=== PATIENT | female | born 1930 | race Caucasian/White ===

== ENCOUNTER 2018-05-13 11:46 | Inpatient (IN) ==
[2018-05-13] MEDS ORDERED: Levofloxacin 500 MG/100 ML 500 MG/100 ML BAG IVPB ONE (12:18)
[2018-05-13] MEDS ORDERED: MetroNIDAZOLE 500 MG/100 ML 500 MG/100 ML BAG IVPB ONE (12:19)
[2018-05-13] MEDS ORDERED: *HR* Propofol 200 MG/20 ML VIAL IVP ONE (12:29)
[2018-05-13] MEDS ORDERED: *HR* FentaNYL (PF) 100 MCG/2 ML VIAL ONE (12:29)
[2018-05-13] MEDS ORDERED: Ringers Solution, Lactated 1,000 ML IVC SCH (12:30)
[2018-05-13] MEDS ORDERED: *HR* Rocuronium Bromide 50 MG/5 ML VIAL ONE (12:31)
[2018-05-13] MEDS ORDERED: Lidocaine -MPF 2% 2 ML VIAL ONE ×2 (12:31→14:28)
--- NOTE | 2018-05-13 12:44 | Anesthesia Evaluation PreOp ---
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) Other Medical History: Thyroid, Other (METASTATIC BREAST CANCER, MANAGED BY A KETOGENIC DIET AN EXPERIMENTAL STUDY AT [facility], LIMITED TO 20 GM OF CARBOHYDRATES PER DAY) Anesthesia History: No Prior Anesthetic Complications, Past Anesthesia (HERI, TONSILS, GB, SPARKLE) Alcohol Use: none Drug use: none Medications and Allergies 3 Allergy/AdvReac Type Severity Reaction Status Date / Time Erythromycin Base Allergy Hives Verified 05/11/18 14:28 Iodinated Contrast- Oral and Allergy Swelling Verified 05/11/18 14:28 IV Dye of [Iodinated Contrast Media - Lip/Tongue/Throat IV Dye] Penicillins Allergy Hives Verified 05/11/18 14:28 gluten AdvReac Rash Verified 05/11/18 14:28 - Meds/Allergy Pre-op Review Medications Reviewed: Yes Allergies Reviewed: Yes Beta Blockers on Current Med List: No Anesthesia Results - Labs Laboratory Last Values WBC 6.3 K/mcL (4.3-11.1) 05/08/18 13:10 RBC 4.17 M/mcL (3.82-4.97) 05/08/18 13:10 Hgb 12.2 g/dL (11.5-15.4) 05/08/18 13:10 Hct 38.9 % (35.3-44.9) 05/08/18 13:10 MCV 93.3 fL (83.0-100.0) 05/08/18 13:10 MCH 29.3 pg (28.0-33.3) 05/08/18 13:10 MCHC 31.4 g/dL (31.6-35.5) L 05/08/18 13:10 RDW 15.2 % (11.5-14.5) H 05/08/18 13:10 Plt Count 318 K/mcL (140-400) 05/08/18 13:10 MPV 9.5 fL (9.4-12.4) 05/08/18 13:10 Immature Gran % 0.3 % (0-4) 05/08/18 13:10 Seg Neutrophils % 75.2 % 05/08/18 13:10 Lymphocytes % 13.8 % 05/08/18 13:10 Monocytes % 8.5 % 05/08/18 13:10 Eosinophils % 1.6 % 05/08/18 13:10 Basophils % 0.6 % 05/08/18 13:10 Neutrophils # 4.7 K/mcL (1.6-8.9) 05/08/18 13:10 Lymphocytes # 0.9 K/mcL (0.6-4.6) 05/08/18 13:10 Monocytes # 0.5 K/mcL (0.0-1.3) 05/08/18 13:10 Eosinophils # 0.1 K/mcL (0.0-0.6) 05/08/18 13:10 Basophils # 0.0 K/mcL (0.0-0.2) 05/08/18 13:10 Potassium 4.1 mEq/L (3.5-5.1) 05/08/18 13:10 Creatinine 0.67 mg/dL (0.60-1.20) 05/08/18 13:10 Est GFR ( Amer) > 60 (> 60) 05/08/18 13:10 Est GFR (Non-Af Amer) > 60 (> 60) 05/08/18 13:10 - Imaging EKG: report reviewed (SINUS RHYTHM WITH SHORT WV INTERVAL) Anesthesia Exam O2 Sat Height 1.52 m Weight 49.895 kg BMI 22 Vital Signs Temp Pulse Resp BP Pulse Ox 98.4 F 88 18 142/65 96 05/13/18 12:06 05/13/18 12:06 05/13/18 12:06 05/13/18 12:06 05/13/18 12:06 NPO (# of Hours): 8 - HEENT Mallampati: II (LIMITED NECK EXTENSION) Teeth: Missing Denture Type: Upper: Partial Oral Opening: Greater than 3 - Cardiac Rhythm: Regular - Pulmonary Breath Sounds: bilateral Clear Respiratory Effort: Symmetrical Anesthesia Assess/Plan ASA Score: 3 Modified Liberty Scale for Level of Consciousness: Cooperative, oriented, and tranquil Anesthetic Plan: General, Regional (TAP BLOCK FOR POST OPERATIVE PAIN) Monitoring Plan: Standard Monitors Recovery Plan: PACU Anes Supervising Prov Stmt: ROR Media LIST NOT UPDATED THIS VISIT PATIENT'S CHART AND CURRENT MEDICATIONS REVIEWED CURRENT MEDICATIONS: Taking Losartan Potassium 25 MG Tablet, Sig: TAKE ONE TABLET BY MOUTH DAILY Taking [place] Thyroid 30 MG Tablet, Sig: TAKE ONE TABLET BY MOUTH DAILY Taking Clonidine HCl 0.1 MG Tablet, Si tablet Orally BID Patient informed and consented. Risks, benefits, and alternatives discussed. Patient wishes to proceed.
--- NOTE | 2018-05-13 12:55 | History & Physical Report ---
Date of Encounter: 05/13/18 Time of Encounter: 12:55 24 Hour HP Update - Instructions Instructions: If the History and Physical is less than 30 days old and was completed prior to A.M. admission and or procedure and has NOT been updated on calendar day of procedure please complete this update prior to performing procedure. - Update Patient reports changes in Medical Condition: No Changes in examination, assessment, or condition: No Changes in Medication: No Preop tests/diagnostics Reviewed: Yes Pre-Op MRSA Screen: Negative Surgery Remains Indicated: Yes Consent for Planned Operative Procedure(s) Verified: Yes - Pre-Operative Checklist Preoperative Checklist Indicated: No Prophylactic Antibiotic Ordered: Yes Home Medications Include Beta Vanda: No Beta Vanda Taken Today (Day of Surgery): No Beta Vanda Taken Yesterday (Day Prior to Surgery): No Is VTE Prophylaxis Indicated?: NO
[2018-05-13] MEDS ORDERED: CefOXitin 1,000 MG VIAL ONE (12:57)
[2018-05-13] MEDS ORDERED: Bupivacaine/EPI 1:200k 0.5%PF 30 ML VIAL ONE (12:57)
[2018-05-13] MEDS ORDERED: Ketamine *HR* 500 MG/10 ML MDV ONE (13:16)
[2018-05-13] MEDS ORDERED: Dexmedetomidine HCl 400 MCG/100 ML MLS IVC ONE (13:17)
[2018-05-13] MEDS ORDERED: Acetaminophen IV 1,000 MG/100 ML INFUS..BTL ONE (13:28)
[2018-05-13] MEDS ORDERED: ROPIVACAINE HCL/PF 0.5% 30 ML VIAL ONE (13:30)
[2018-05-13] MEDS ORDERED: Ondansetron 4 MG/2 ML VIAL ONE (13:57)
[2018-05-13] MEDS ORDERED: *HR* Magnesium Sulfate 1 GM/2 ML VIAL ONE (13:58)
[2018-05-13] MEDS ORDERED: *HR* PHENYLEPHRINE 1,000 MCG/10 ML SYRINGE IVP ONE (14:03)
[2018-05-13] MEDS ORDERED: Ondansetron 4 MG/2 ML VIAL IVP PRN (14:26)
[2018-05-13] MEDS ORDERED: *HR* Labetalol 20 MG/4 ML SYRINGE IVP PRN (14:26)
[2018-05-13] MEDS ORDERED: Ketorolac 30 MG/ML VIAL ONE (15:22)
[2018-05-13] MEDS ORDERED: Neostigmine Methylsulfate 3 MG/3 ML SYRINGE ONE (15:55)
--- NOTE | 2018-05-13 16:14 | Operative Note ---
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 Exploratory celiotomy. 2. Right colectomy. Anesthesia: GETA Surgeon: Zach Connelly Was there an per diem physical therapist assistant present: Yes Urgent Care Technician: Tea Corral Estimated blood loss (cc): 45 Specimen: omentum, right colon Condition: stable Disposition: PACU Procedure in Detail: Date of surgery: 05/13/18 After properly identifying the patient, the patient was brought to the operating room and placed in the supine position. After proper IV sedation was achieved followed by general endotracheal intubation, the patient's abdomen was prepped and draped in a normal sterile fashion. A timeout was performed noting the patient's name and type of procedure to be performed. A 10 blade scalpel was used to make an incision just below the xiphoid process along the midline extending just below the level of the umbilicus. Bovie cauterization was used to dissected the subcutaneous tissue and abdominal wall fascia into the abdomen was entered. The abdominal wall fascia was opened along the course of the skin incision. Bovie cauterization was used to maintain hemostasis and an Justo wound protector was placed within the wound to protect the subcutaneous tissue. The transverse colon was readily visualized. The mesentery appeared to be sure shortened and very fibrotic in nature. There is no laxity in the mesentery and palpation in the right upper quadrant demonstrated a firm adherent mass in the colon that was adherent to the abdominal sidewall. In order to allow for dissection first the transverse colon was transected with a NATY stapler. Bovie cauterization was used to carefully dissect through the initially thin mesentery until the hard fibrotic portion of the mesentery in the hepatic flexure region was encountered, which was located centrally throughout the entire mesentery. There was a lot of denseness within the mesentery causing difficulty with the dissection and difficulty in visualizing a plane. Right angle forceps as well as tonsil dissectors were used to create windows and openings while a handheld LigaSure was used to transect across the mesentery. There were some adhesions from the colon to the liver due to the patient's previous cholecystectomy and these were taken down with Bovie cauterization and the handheld LigaSure. Once the hepatic flexure and ascending colon were encountered there was noted thickness of the colon and a mass effect that appeared to also be be part of the mesentery in this region. The colon was directly adherent to the sidewall which was taken down with Bovie cauterization. The mesentery itself had to be taken down with the above- mentioned technique using the tonsil dissector and LigaSure as well as Bovie cauterization. The duodenum was noted to be away from the dissection plane but again the mesentery was very fibrotic in nature and foreshortened. Bovie cauterization was used to maintain hemostasis and dissection was carried down further inferiorly towards the ileocecal valve and distal ileum. Once the distal ileum was visualized it was transected with a NATY stapler and the intervening/remaining mesentery was transected with the handheld LigaSure. The segment of the bowel was then submitted to pathology. Of note; the entire mesentery in this region appear to have some type of fibrotic reaction very similar to what is seen in a carcinoid cancer of the colon or small bowel and the resulting thickening and fibrosis that can occur in the mesentery of that particular tumor. The small bowel was anastomosed to the transverse colon segment by first tacking the bowel from serosa to serosa with interrupted 3-0 silk sutures. The anastomosis was created with the NATY stapler and the enterotomy was then closed with a TA stapler and imbricated with interrupted 3- 0 silk sutures. The right upper quadrant was copiously irrigated with normal saline solution and the decision was made to complete the surgical procedure by placing Seprafilm within the abdomen and reapproximating the fascia with running 0 looped PDS sutures 2. Subcutaneous tissue was reapproximated with 2- 0 Vicryl sutures and the epidermal and dermal layers were reapproximated with cecil. Needle, sponge, and instrument counts were correct 2 and the incision was covered with 4 x 4 gauze. The patient was aroused from IV sedation , extubated in the operating room without complication, and transported to the recovery room in stable condition.
[2018-05-13] MEDS: *HR* HYDROmorphone 2 MG/ML SYRINGE IVP PRN ×2 (16:53→17:15)
--- NOTE | 2018-05-13 17:51 | Anesthesia Procedures ---
Date of Encounter: 05/13/18 Time of Encounter: 16:20 Procedures: Anesthesia - Nerve Block Procedure Date: 05/13/18 Time: 16:20 Allergies/Adv Reactions: see emr Pre-op Diagnosis: colon ca Surgical Procedure: open right colectomy Checklist: Correct Patient Identifier, Correct procedure, History checked Blood Thinner: No Monitor Applied: EKG, BP, Pulse Oximetry Supplemental Oxygen via Nasal Cannula (L/min): 2 (GETA) Indication: Post Op Analgesia Pre-op Neuro Deficits: No Block Type: Other (bilateral tap block 30ml per side) Catheter placed: No Sterile Technique: Yes Ultrasound used: Yes Anatomy identified: Yes Visual spread of Local: Yes Neuro Stimulation: No Blood on Needle Aspiration: No Smooth Injection of Local: Yes Pain with Injection of Local: No Prep: Chlorhexadine Needle: 21 x 100 mm Stimuplex (echogenic) Local: Ropivacaine (0.25%), Other (decadron 8mg per side, 40mg lidocaine per side) Volume (cc): 60 Number of Attempts: 1 Complications: None/effective block Vitals: see anesthetic record
--- NOTE | 2018-05-13 17:53 | Anesthesia Evaluation Post Op ---
Date of Encounter: 05/13/18 Time of Encounter: 17:42 - Discharge PostOp Status: Transfer Patient to floor (Patient's vital signs have been reviewed. Patient is stable postoperatively and has adequately recovered from anesthesia. Patient is determined to have stable airway patency and respiratory function including respiratory rate and oxygen saturation. Patient has a stable heart rate, blood pressure and adequate hydration. Patients mental status is acceptable. Patients temperature is appropriate. Pain and nausea are adequately controlled.)
[2018-05-13] MEDS ORDERED: Naloxone 0.4 MG/ML INJ IVP PRN (17:58)
[2018-05-13] MEDS ORDERED: Acetaminophen IV 1,000 MG/100 ML INFUS..BTL IVPB SCH (18:00)
[2018-05-13 18:39] LABS: Basophils % 0.1 %; Eosinophils % 0.1 %; Hematocrit 34.4 % (35.3-44.9); Hemoglobin 10.7 g/dL (11.5-15.4); Immature Granulocytes % 0.2 % (0-4); Lymphocytes # 0.6 K/mcL (0.6-4.6); Lymphocytes % 7.1 %; Mean Corpuscular HGB Conc 31.1 g/dL (31.6-35.5); Mean Corpuscular Hemoglobin 29.2 pg (28.0-33.3); Mean Platelet Volume 8.9 fL (9.4-12.4); Monocytes # 0.7 K/mcL (0.0-1.3); Monocytes % 7.8 %; Neutrophils # 7.3 K/mcL (1.6-8.9); Platelet Count 249 K/mcL (140-400); Red Blood Count 3.66 M/mcL (3.82-4.97); Red Cell Distribution Width 14.9 % (11.5-14.5); Segmented Neutrophils % 84.7 %
[2018-05-13] MEDS: 0.9 % Sodium Chloride 1,000 ML IVC SCH (18:42)
[2018-05-13] MEDS: MORPHINE SUL Oral CONC 10 MG/0.5 ML ORAL.SYG SL PRN ×2 (18:43→22:07)
[2018-05-13] MEDS: cloNIDine HCl 0.1 MG TABLET PO SCH (20:04)
[2018-05-13] MEDS: Acetaminophen IV 1,000 MG/100 ML INFUS..BTL IVPB SCH (20:07)
[2018-05-13] MEDS: MetroNIDAZOLE 500 MG/100 ML 500 MG/100 ML BAG IVPB SCH (22:08)
[2018-05-14] MEDS: Acetaminophen IV 1,000 MG/100 ML INFUS..BTL IVPB SCH ×4 (02:06→21:43)
[2018-05-14] MEDS: MetroNIDAZOLE 500 MG/100 ML 500 MG/100 ML BAG IVPB SCH ×2 (06:04→13:19)
[2018-05-14 06:48] LABS: BUN/Creatinine Ratio 19 (6-26); Blood Urea Nitrogen 16 mg/dL (8-23); Calcium 8.1 mg/dL (8.6-10.3); Carbon Dioxide 15 mEq/L (23-29); Chloride 106 mEq/L (98-107); Glucose 115 mg/dL (70-105); Magnesium 2.1 mg/dL (1.6-2.6); Osmolality,Calculated 284 (280-300); Potassium 4.3 mEq/L (3.5-5.1); Sodium 136 mEq/L (136-145); eGFR For Non-African Americans > 60 (> 60)
[2018-05-14] MEDS: MORPHINE SUL Oral CONC 10 MG/0.5 ML ORAL.SYG SL PRN ×2 (08:02→23:33)
[2018-05-14] MEDS: cloNIDine HCl 0.1 MG TABLET PO SCH ×2 (08:02→20:09)
[2018-05-14] MEDS: Pantoprazole 40 MG VIAL IVP SCH (08:03)
--- NOTE | 2018-05-14 10:06 | General Surgery Progress Note ---
<Alea Meyer - Last Filed: 05/14/18 10:37> Date of Encounter: 05/14/18 Time of Encounter: 10:06 - Assessment and Plan (1) Breast cancer metastasized to large intestine Current Visit: Yes Status: Acute POD 1 right partial colectomy with very fribrotic tissue resected - continue supportive care and pain control -advance diet to clears - biotine mouth wash for comfort - PT/OT to evaluate for weakness - up to chair - anticipate we may begin wound care tomorrow on POD 2 Qualifiers: Laterality: unspecified laterality Qualified Code(s): C50.919 - Malignant neoplasm of unspecified site of unspecified female breast; 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 (2) Hypertension Current Visit: No Status: Acute Qualifiers: Hypertension type: essential hypertension Qualified Code(s): I10 - Essential (primary) hypertension (3) Malignancy Current Visit: No Status: Suspected (4) DVT prophylaxis Current Visit: Yes Status: Acute heparin sq and calf pumps Subjective Patient reports: still having pain (pain worse at incision ), tolerating liquids well, bowel movement, afebrile (patient says that 98.3 is an elevated tempature for her), other (complains of generilized weakness and fatigue) Objective Vital Signs - Last 8 Hours Temp Pulse Resp BP Pulse Ox 05/14/18 08:10 94 05/14/18 07:05 97.9 F 89 17 115/67 94 05/14/18 04:59 98.6 F 91 12 114/64 95 Intake and Output 05/13/18 05/14/18 05/14/18 23:59 07:59 15:59 Intake Total 200 / 200 100 / 100 100 / 100 Output Total 145 / 145 200 / 200 Balance 55 / 55 -100 / -100 100 / 100 Intake: IV Fluids 200 / 200 100 / 100 100 / 100 Ofirmev 1,000 mg/100 ml 1,000 100 / 100 100 / 100 mg In 100 ml @ 400 mls/hr IVPB Q6H [facility] Rx#:[id number] Flagyl Premix 500 MG/100 ML 500 100 / 100 100 / 100 mg In 100 ml @ 100 mls/hr IVPB Q8H [facility] Rx#:[id number] Oral 0 / 0 Output: Estimated Blood Loss 45 / 45 Urine Amount (Catheter) 100 / 100 Catheter 200 / 200 Other: Stool Size Small Stool Consistency loose Stool Color Brown Green Weight 52.5 kg Blood Glucose* 108 Patient Weight 05/14/18 23:59 Weight 52.5 kg - General physical appearance well developed, well nourished, no distress - Eyes normal ocular movement - ENT normal pinna, normal nares, normal mucosa, no congestion - Respiratory normal expansion, normal respiratory effort, clear to auscultation - Cardiovascular Cardiovascular exam: Present: RRR, no murmurs/rubs/gallops - Abdomen Abdomen: Present: bowel sounds present, soft Abdominal Tenderness: epigastic - Incision Incision: Present: approximated (covered by dressing ). Absent: draining - Integumentary no rash, no growths, no abnormal pigmentation - Neurologic CN 2-12 grossly intact, normal coordination, normal sensation - Musculoskeletal normal gait, normal posture - Psychiatric oriented to time, oriented to person, oriented to place, speech is normal, memory intact - Labs 05/13/18 18:19 05/14/18 05:46 Diabetes panel 05/14/18 Range/Units 05:46 Sodium 136 (136-145) mEq/L Potassium 4.3 (3.5-5.1) mEq/L Chloride 106 (98-107) mEq/L Carbon Dioxide 15 L (23-29) mEq/L BUN 16 (8-23) mg/dL Creatinine 0.85 (0.60-1.20) mg/dL Glucose 115 H (70-105) mg/dL Calcium 8.1 L (8.6-10.3) mg/dL Calcium panel 05/14/18 Range/Units 05:46 Calcium 8.1 L (8.6-10.3) mg/dL Pituitary panel 05/14/18 Range/Units 05:46 Sodium 136 (136-145) mEq/L Potassium 4.3 (3.5-5.1) mEq/L Chloride 106 (98-107) mEq/L Carbon Dioxide 15 L (23-29) mEq/L BUN 16 (8-23) mg/dL Creatinine 0.85 (0.60-1.20) mg/dL Glucose 115 H (70-105) mg/dL Calcium 8.1 L (8.6-10.3) mg/dL Adrenal panel 05/14/18 Range/Units 05:46 Sodium 136 (136-145) mEq/L Potassium 4.3 (3.5-5.1) mEq/L Chloride 106 (98-107) mEq/L Carbon Dioxide 15 L (23-29) mEq/L BUN 16 (8-23) mg/dL Creatinine 0.85 (0.60-1.20) mg/dL Glucose 115 H (70-105) mg/dL Calcium 8.1 L (8.6-10.3) mg/dL Consult Discharge Plan - Plan Referrals: Zach Connelly MD [Partnered Physician] - 05/26/18 1:25 pm Maryan Chapin CNP [Primary Care Provider] - <Zach Connelly - Last Filed: 05/15/18 08:55> Date of Encounter: 05/14/18 Objective Vital Signs - Last 8 Hours Temp Pulse Resp BP Pulse Ox 05/15/18 07:59 97.8 F 99 14 113/60 96 05/15/18 04:58 98.1 F 98 15 121/67 96 Intake and Output 05/14/18 05/15/18 05/15/18 23:59 07:59 15:59 Intake Total 340 / 340 1100 / 1100 Output Total 100 / 100 350 / 350 Balance 240 / 240 750 / 750 Intake: IV Fluids 100 / 100 1100 / 1100 0.9 % Sodium Chloride 1,000 ML 1000 / 1000 @ 70 mls/hr IVC .[id number] [facility] Rx #:[id number] Ofirmev 1,000 mg/100 ml 1,000 100 / 100 100 / 100 mg In 100 ml @ 400 mls/hr IVPB Q6H [facility] Rx#:[id number] Oral 240 / 240 0 / 0 Output: Catheter 100 / 100 350 / 350 Other: Meal CLEARS Stool Size Small Stool Consistency liquid Stool Color Green # Bowel Movements 0 0 - Labs 05/13/18 18:19 05/14/18 05:46 - Attending Attestation I examined this patient and my medical decision-making was reviewed with the Resident Physician. I agree with the documented findings, disposition and treatment plan as described except to the extent set forth below. I reviewed the above assessment and evaluation and agree with the above plan. Continue OOB to chair. Clear liquids. Start dressing change tomorrow.
[2018-05-14] MEDS ORDERED: Saliva Stimulant 100ml BOTTLE PO PRN (10:17)
[2018-05-14] MEDS: 0.9 % Sodium Chloride 1,000 ML IVC SCH (13:19)
[2018-05-14] MEDS ORDERED: Levofloxacin 500 MG/100 ML 500 MG/100 ML BAG IVPB SCH (14:00)
[2018-05-14] MEDS: *HR* Heparin 5,000 UNIT/ML VIAL SQ SCH (17:54)
[2018-05-15] MEDS: Acetaminophen IV 1,000 MG/100 ML INFUS..BTL IVPB SCH ×2 (01:16→08:37)
[2018-05-15] MEDS: *HR* Heparin 5,000 UNIT/ML VIAL SQ SCH ×2 (05:04→16:53)
[2018-05-15] MEDS: MORPHINE SUL Oral CONC 10 MG/0.5 ML ORAL.SYG SL PRN ×2 (05:05→15:02)
[2018-05-15] MEDS: 0.9 % Sodium Chloride 1,000 ML IVC SCH (05:45)
[2018-05-15] MEDS: Pantoprazole 40 MG VIAL IVP SCH (08:32)
[2018-05-15] MEDS: cloNIDine HCl 0.1 MG TABLET PO SCH ×2 (08:32→22:14)
--- NOTE | 2018-05-15 12:03 | General Surgery Progress Note ---
Date of Encounter: 05/15/18 Time of Encounter: 12:01 - Assessment and Plan (1) Breast cancer metastasized to large intestine Current Visit: Yes Status: Acute Patient is s/p right colectomy POD 2. Tolerating clears. Will DC shel[place]. Advance diet to full liquids. Heplock IVF. Start oral pain medications. OOB and ambulation. Start dressing changes today. 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 No pain currently. No nausea or vomiting. Positive BM and flatus.) Objective Vital Signs - Last 8 Hours Temp Pulse Resp BP Pulse Ox 05/15/18 09:59 98.3 F 95 12 105/62 94 05/15/18 08:30 94 05/15/18 07:59 97.8 F 99 14 113/60 96 05/15/18 04:58 98.1 F 98 15 121/67 96 Intake and Output 05/14/18 05/15/18 05/15/18 23:59 07:59 15:59 Intake Total 340 / 340 1100 / 1100 460 / 460 Output Total 100 / 100 350 / 350 Balance 240 / 240 750 / 750 460 / 460 Intake: IV Fluids 100 / 100 1100 / 1100 100 / 100 0.9 % Sodium Chloride 1,000 ML 1000 / 1000 @ 70 mls/hr IVC .[id number] [facility] Rx #:[id number] Ofirmev 1,000 mg/100 ml 1,000 100 / 100 100 / 100 100 / 100 mg In 100 ml @ 400 mls/hr IVPB Q6H [facility] Rx#:[id number] Oral 240 / 240 0 / 0 360 / 360 Output: Catheter 100 / 100 350 / 350 Other: Meal CLEARS Breakfast Clear Stool Size Small Stool Consistency liquid Stool Color Green # Bowel Movements 0 0 - General physical appearance no distress - Abdomen Abdomen: Present: soft, non tender - Incision Incision: Present: clean and dry, intact - Neurologic CN 2-12 grossly intact - Labs 05/13/18 18:19 05/14/18 05:46 Consult Discharge Plan - Plan Referrals: Zach Connelly MD [Partnered Physician] - 05/26/18 1:25 pm Maryan Chapin CNP [Primary Care Provider] -
[2018-05-15] MEDS: Ondansetron 4 MG/2 ML VIAL IVP PRN (22:13)
[2018-05-16] MEDS: MORPHINE SUL Oral CONC 10 MG/0.5 ML ORAL.SYG SL PRN (05:19)
[2018-05-16] MEDS: *HR* Heparin 5,000 UNIT/ML VIAL SQ SCH ×2 (05:20→16:00)
[2018-05-16] MEDS: Ondansetron 4 MG/2 ML VIAL IVP PRN (05:20)
[2018-05-16] MEDS: Pantoprazole 40 MG VIAL IVP SCH (08:38)
[2018-05-16] MEDS: cloNIDine HCl 0.1 MG TABLET PO SCH (08:38)
--- NOTE | 2018-05-16 10:04 | General Surgery Progress Note ---
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 Objective Vital Signs - Last 8 Hours Temp Pulse Resp BP Pulse Ox 05/16/18 14:42 97.9 F 95 13 119/64 96 05/16/18 10:00 98.2 F 112 13 153/79 95 05/16/18 06:58 97.3 F L 109 15 156/74 97 Intake and Output 05/15/18 05/16/18 05/16/18 23:59 07:59 15:59 Intake Total 360 / 360 0 / 0 0 / 0 Output Total 375 / 375 Balance 360 / 360 -375 / -375 0 / 0 Intake: IV Fluids 0 / 0 0.9 % Sodium Chloride 1,000 ML 0 / 0 @ 80 mls/hr IVC .[id number] [facility] Rx #:[id number] Oral 360 / 360 0 / 0 Output: Urine 375 / 375 Other: Meal clears Stool Size Smear Stool Consistency loose Stool Color Brown # Voids 1 # Bowel Movements 1 - Labs 05/16/18 10:40 05/16/18 10:40 Diabetes panel 05/16/18 Range/Units 10:40 Sodium 134 L (136-145) mEq/L Potassium 4.5 (3.5-5.1) mEq/L Chloride 105 (98-107) mEq/L Carbon Dioxide 16 L (23-29) mEq/L BUN 15 (8-23) mg/dL Creatinine 0.67 (0.60-1.20) mg/dL Glucose 103 (70-105) mg/dL Calcium 8.5 L (8.6-10.3) mg/dL Calcium panel 05/16/18 Range/Units 10:40 Calcium 8.5 L (8.6-10.3) mg/dL Phosphorus 2.1 L (2.7-4.5) mg/dL Pituitary panel 05/16/18 Range/Units 10:40 Sodium 134 L (136-145) mEq/L Potassium 4.5 (3.5-5.1) mEq/L Chloride 105 (98-107) mEq/L Carbon Dioxide 16 L (23-29) mEq/L BUN 15 (8-23) mg/dL Creatinine 0.67 (0.60-1.20) mg/dL Glucose 103 (70-105) mg/dL Calcium 8.5 L (8.6-10.3) mg/dL Adrenal panel 05/16/18 Range/Units 10:40 Sodium 134 L (136-145) mEq/L Potassium 4.5 (3.5-5.1) mEq/L Chloride 105 (98-107) mEq/L Carbon Dioxide 16 L (23-29) mEq/L BUN 15 (8-23) mg/dL Creatinine 0.67 (0.60-1.20) mg/dL Glucose 103 (70-105) mg/dL Calcium 8.5 L (8.6-10.3) mg/dL Consult Discharge Plan - Plan Referrals: Zach Connelly MD [Partnered Physician] - 05/26/18 1:25 pm Maryan Chapin CNP [Primary Care Provider] - - Attending Attestation I examined this patient and my medical decision-making was reviewed with the Resident Physician. I agree with the documented findings, disposition and treatment plan as described except to the extent set forth below. Patient reported nausea. Patient did not eat dinner nor a breakfast and has had some vomiting. She admits to passing flatus. Given the poor by mouth intake yesterday evening and also today we will back off to IV fluids and to clear liquids. Incision is clean dry and intact with no signs of erythema patient has positive bowel sounds. Phenergan has been added for antinausea medication and we will obtain an abdominal plain film. Will follow along <Alea Meyer - Last Filed: 05/16/18 17:20> Date of Encounter: 05/16/18 Time of Encounter: 10:02 - Assessment and Plan (1) Breast cancer metastasized to large intestine Current Visit: Yes Status: Acute POD 1 right partial colectomy with very fribrotic tissue resected; she is continuing to complain of pain and vomiting - continue supportive care and pain control -not tolerating softs, change to clears that are gluten free - IVF NS 80 - start phenegran in addition to zofran - BMP and CMP - begin wound care - X-ray abdominal shows ileus Dr Connelly will re-evaluate later today Qualifiers: Laterality: unspecified laterality Qualified Code(s): C50.919 - Malignant neoplasm of unspecified site of unspecified female breast; 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 Patient ate very little of food yesterday ) Objective Vital Signs - Last 8 Hours Temp Pulse Resp BP Pulse Ox 05/16/18 06:58 97.3 F L 109 15 156/74 97 05/16/18 03:01 97.9 F 105 14 147/77 95 Intake and Output 05/15/18 05/16/18 05/16/18 23:59 07:59 15:59 Intake Total 360 / 360 0 / 0 Output Total 375 / 375 Balance 360 / 360 -375 / -375 Intake: Oral 360 / 360 0 / 0 Output: Urine 375 / 375 Other: Meal clears Stool Size Smear Stool Consistency loose Stool Color Brown # Voids 1 # Bowel Movements 1 - General physical appearance well developed, well nourished, moderate distress - Eyes normal ocular movement - ENT normal pinna, normal nares, normal mucosa, no hearing loss - Respiratory normal expansion, normal respiratory effort, clear to auscultation - Cardiovascular Cardiovascular exam: Present: RRR, no murmurs/rubs/gallops - Abdomen Abdomen: Present: bowel sounds present, soft Abdominal Tenderness: RLQ (worse), diffusely Hernia: none - Incision Incision: Present: approximated. Absent: draining, inflamed, erythema, indurated - Neurologic CN 2-12 grossly intact, normal coordination, normal sensation - Musculoskeletal normal gait, normal posture - Psychiatric oriented to time, oriented to person, oriented to place, speech is normal, memory intact, other (anxious) - Labs 05/16/18 10:40 05/16/18 10:40
[2018-05-16 10:52] LABS: Basophils % 0.4 %; Eosinophils % 0.3 %; Hematocrit 31.4 % (35.3-44.9); Hemoglobin 9.8 g/dL (11.5-15.4); Immature Granulocytes % 0.5 % (0-4); Lymphocytes # 0.5 K/mcL (0.6-4.6); Lymphocytes % 5.1 %; Mean Corpuscular HGB Conc 31.2 g/dL (31.6-35.5); Mean Corpuscular Hemoglobin 29.8 pg (28.0-33.3); Mean Corpuscular Volume 95.4 fL (83.0-100.0); Mean Platelet Volume 8.8 fL (9.4-12.4); Monocytes # 0.5 K/mcL (0.0-1.3); Monocytes % 4.7 %; Platelet Count 288 K/mcL (140-400); Red Blood Count 3.29 M/mcL (3.82-4.97); Red Cell Distribution Width 15.7 % (11.5-14.5)
[2018-05-16 11:10] LABS: BUN/Creatinine Ratio 22 (6-26); Blood Urea Nitrogen 15 mg/dL (8-23); Calcium 8.5 mg/dL (8.6-10.3); Carbon Dioxide 16 mEq/L (23-29); Chloride 105 mEq/L (98-107); Glucose 103 mg/dL (70-105); Magnesium 1.8 mg/dL (1.6-2.6); Osmolality,Calculated 279 (280-300); Phosphorous 2.1 mg/dL (2.7-4.5); Potassium 4.5 mEq/L (3.5-5.1); Sodium 134 mEq/L (136-145); eGFR For Non-African Americans > 60 (> 60)
[2018-05-16] MEDS: *HR* Promethazine 25 MG/ML VIAL IVP PRN (11:23)
[2018-05-16] MEDS: 0.9 % Sodium Chloride 1,000 ML IVC SCH ×2 (11:25→21:12)
[2018-05-17] MEDS: *HR* Metoprolol 5 MG/5 ML VIAL IVP PRN ×3 (03:55→19:44)
[2018-05-17] MEDS: *HR* Heparin 5,000 UNIT/ML VIAL SQ SCH ×2 (03:55→16:00)
[2018-05-17] MEDS: MORPHINE SUL Oral CONC 10 MG/0.5 ML ORAL.SYG SL PRN ×2 (03:55→12:02)
[2018-05-17] MEDS: Pantoprazole 40 MG VIAL IVP SCH (07:21)
[2018-05-17] MEDS: *HR* Promethazine 25 MG/ML VIAL IVP PRN ×3 (07:21→22:15)
[2018-05-17] MEDS: 0.9 % Sodium Chloride 1,000 ML IVC SCH ×2 (09:32→22:14)
--- NOTE | 2018-05-17 11:30 | General Surgery Progress Note ---
<Alea Meyer - Last Filed: 05/17/18 16:19> Date of Encounter: 05/17/18 Time of Encounter: 11:27 - Assessment and Plan (1) Breast cancer metastasized to large intestine Current Visit: Yes Status: Acute POD 1 right partial colectomy with very fribrotic tissue resected; X-ray abd on 05-16 showed possible ileus - continue supportive care and pain control -continue clears that are gluten free - IVF NS 80 - continue prn zofran and phenegran - serial abdominal exams - routine wound care - start reglan for three days Qualifiers: Laterality: unspecified laterality Qualified Code(s): C50.919 - Malignant neoplasm of unspecified site of unspecified female breast; 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 (2) Ileus following gastrointestinal surgery Current Visit: Yes Status: Acute see above (3) Malignancy Current Visit: No Status: Suspected see above (4) Hypertension Current Visit: No Status: Acute hold home clonidine due to vomiting - continue lopressor IV PRN Qualifiers: Hypertension type: essential hypertension Qualified Code(s): I10 - Essential (primary) hypertension (5) Hypothyroidism Current Visit: No Status: Chronic held amour has it preceded vomiting yesterday Qualifiers: Hypothyroidism type: unspecified Qualified Code(s): E03.9 - Hypothyroidism , unspecified (6) DVT prophylaxis Current Visit: Yes Status: Acute Needs heparin sq and calf pumps due too high risk of cancer patient post surgery but patient keeps removing pumps Subjective Patient reports: still having pain (pain has moved from under incision to RUQ), tolerating liquids well (nausa when up this morning but not after clears), no flatus, no bowel movement, nausea, afebrile (patient claims fever due to her normal temp being degree lower) Objective Vital Signs - Last 8 Hours Temp Pulse Resp BP Pulse Ox 05/17/18 07:15 98.6 F 102 16 184/78 97 05/17/18 03:35 98.2 F 106 15 175/79 97 Intake and Output 05/16/18 05/17/18 05/17/18 23:59 07:59 15:59 Intake Total 450 / 450 750 / 750 250 / 250 Output Total 0 / 0 650 / 650 Balance 450 / 450 100 / 100 250 / 250 Intake: IV Fluids 450 / 450 750 / 750 250 / 250 0.9 % Sodium Chloride 1,000 ML 450 / 450 750 / 750 250 / 250 @ 80 mls/hr IVC .[id number] [facility] Rx #:[id number] Oral 0 / 0 0 / 0 Output: Urine 0 / 0 650 / 650 Other: # Voids 1 # Bowel Movements 0 0 Weight 53.1 kg Patient Weight 05/17/18 23:59 Weight 53.1 kg - General physical appearance well developed, well nourished, moderate distress - Eyes normal ocular movement - ENT normal pinna, normal nares, normal mucosa - Respiratory normal expansion, normal respiratory effort, clear to auscultation - Cardiovascular Cardiovascular exam: Present: RRR, no murmurs/rubs/gallops - Abdomen Abdomen: Present: bowel sounds present, soft, tender, wound. Absent: masses, guarding Abdominal Tenderness: RUQ, diffusely Hernia: none - Incision Incision: Present: clean and dry, approximated. Absent: draining, swollen, inflamed - Integumentary no rash, no growths, no abnormal pigmentation - Neurologic CN 2-12 grossly intact, normal coordination, normal sensation - Musculoskeletal normal posture - Psychiatric oriented to time, oriented to person, oriented to place, speech is normal, other (remains anxious) - Labs 05/16/18 10:40 05/16/18 10:40 Consult Discharge Plan - Plan Referrals: Zach Connelly MD [Partnered Physician] - 05/26/18 1:25 pm [place],Maryan Gates CNP [Primary Care Provider] - <Zach Conenlly - Last Filed: 05/18/18 07:13> Date of Encounter: 05/17/18 - Assessment and Plan (1) Breast cancer metastasized to large intestine Current Visit: Yes Status: Acute Qualifiers: Laterality: unspecified laterality Qualified Code(s): C50.919 - Malignant neoplasm of unspecified site of unspecified female breast; 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 Objective Vital Signs - Last 8 Hours Temp Pulse Resp BP Pulse Ox 05/18/18 04:23 98.0 F 120 16 189/92 95 05/17/18 23:28 98.7 F 119 15 166/69 96 Intake and Output 05/17/18 05/17/18 05/18/18 15:59 23:59 07:59 Intake Total 446 / 446 904 / 904 725 / 725 Output Total 275 / 275 0 / 0 0 / 0 Balance 171 / 171 904 / 904 725 / 725 Intake: IV Fluids 446 / 446 804 / 804 725 / 725 0.9 % Sodium Chloride 1,000 ML 446 / 446 804 / 804 725 / 725 @ 80 mls/hr IVC .[id number] [facility] Rx #:[id number] Oral 100 / 100 0 / 0 Output: Urine 0 / 0 0 / 0 0 / 0 Catheter 275 / 275 Gastric Drainage 0 / 0 Other: Stool Size Small Small Stool Consistency loose liquid Stool Color Brown Brown # Voids 1 1 # Bowel Movements 0 1 Weight 53 kg Patient Weight 05/18/18 23:59 Weight 53 kg - Labs 05/16/18 10:40 05/16/18 10:40 - Attending Attestation I examined this patient and my medical decision-making was reviewed with the Resident Physician. I agree with the documented findings, disposition and treatment plan as described except to the extent set forth below. Review the above assessment and evaluation and agree with the above plan. Will add Reglan 5 mg IV every 6 hours 3 days. Await return of bowel function. Continue on clears at this time.
[2018-05-17] MEDS: Metoclopramide 10 MG/2 ML VIAL IVP SCH (17:34)
[2018-05-17] MEDS: Ondansetron 4 MG/2 ML VIAL IVP PRN (20:41)
[2018-05-18] MEDS: Metoclopramide 10 MG/2 ML VIAL IVP SCH ×4 (00:20→17:45)
[2018-05-18] MEDS: *HR* Promethazine 25 MG/ML VIAL IVP PRN ×3 (04:03→17:06)
[2018-05-18] MEDS: *HR* Heparin 5,000 UNIT/ML VIAL SQ SCH ×2 (05:33→15:31)
[2018-05-18] MEDS: Pantoprazole 40 MG VIAL IVP SCH (07:07)
[2018-05-18] MEDS: Ondansetron 4 MG/2 ML VIAL IVP PRN (07:07)
[2018-05-18] MEDS: *HR* Metoprolol 5 MG/5 ML VIAL IVP PRN ×2 (07:07→17:02)
[2018-05-18] MEDS: 0.9 % Sodium Chloride 1,000 ML IVC SCH (10:46)
[2018-05-18] MEDS: MORPHINE SUL Oral CONC 10 MG/0.5 ML ORAL.SYG SL PRN (10:51)
--- NOTE | 2018-05-18 12:23 | General Surgery Progress Note ---
Date of Encounter: 05/18/18 Time of Encounter: 12:21 - Assessment and Plan (1) Breast cancer metastasized to large intestine Current Visit: Yes Status: Acute The patient has had nausea and vomiting but continues to pass flatus and has had bowel movements. She has positive bowel sounds as well. If she continues to have poor by mouth intake then we may need to consider a PICC line placement and TPN starting tomorrow. 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 Will consult the hospitalist for medical management. Qualifiers: Hypertension type: essential hypertension Qualified Code(s): I10 - Essential (primary) hypertension (3) Tachycardia Current Visit: Yes Status: Acute Noted also patient with tachycardia. Will consult hospitalist as mentioned above. Subjective Patient reports: other (Patient states that she had nausea and vomiting today. Was called about elevated heart rate and blood pressure as well.) Objective Vital Signs - Last 8 Hours Temp Pulse Resp BP Pulse Ox 05/18/18 08:54 97 05/18/18 07:55 98.5 F 100 15 166/74 97 05/18/18 04:23 98.0 F 120 16 189/92 95 Intake and Output 05/17/18 05/18/18 05/18/18 23:59 07:59 15:59 Intake Total 904 / 904 725 / 725 275 / 275 Output Total 0 / 0 0 / 0 Balance 904 / 904 725 / 725 275 / 275 Intake: IV Fluids 804 / 804 725 / 725 275 / 275 0.9 % Sodium Chloride 1,000 ML 804 / 804 725 / 725 275 / 275 @ 80 mls/hr IVC .[id number] [facility] Rx #:[id number] Oral 100 / 100 0 / 0 Output: Urine 0 / 0 0 / 0 Other: Stool Size Small Stool Consistency liquid Stool Color Brown # Voids 1 # Bowel Movements 1 Weight 53 kg Patient Weight 05/18/18 23:59 Weight 53 kg - General physical appearance no distress - Respiratory normal expansion, normal respiratory effort - Cardiovascular Cardiovascular exam: Present: tachycardia - Abdomen Abdomen: Present: bowel sounds present, soft, tender (Minimal tenderness noted on examination.) - Labs 05/19/18 03:27 05/19/18 03:27 Consult Discharge Plan - Plan Referrals: Zach Connelly MD [Partnered Physician] - 05/26/18 1:25 pm Maryan Chapin CNP [Primary Care Provider] -
--- NOTE | 2018-05-18 15:08 | Internal Medicine Consult Note ---
<Flor Jones - Last Filed: 05/18/18 15:25> Date of Encounter: 05/18/18 - Time Spent With Patient Total time spent is greater than 50% in coordination of care (as documented) at patient's floor/unit and/or counseling patient: Internal Medicine - CN: HPI - Data of Consult Requesting Physician: Zach Connelly MD - Consult Narrative History of present illness: Ms. Jha is a 87 year old female Internal Medicine - CN: Meds Calcium Carbonate/Vitamin D3 [Calcium 500 + Vit D Caplet] 1 tab PO DAILY [History] Cholecalciferol (D-3) [Vitamin D] 2,000 unit PO DAILY 05/13/18 [History] Cyanocobalamin (Vitamin B-12) [Vitamin B-12] 1,000 mcg PO DAILY 05/13/18 [ History] Ferrous Sulfate [Iron] 325 mg PO DAILY 05/13/18 [History] Glucosamn/Condroitn/C/Mn/[place]ill [[facility]vs Glucosamine Chondroitin Tb] 1 tab PO DAILY 05/13/18 [History] Glutamine [l-Glutamine] 500 mg PO DAILY 05/13/18 [History] Krill/Om-3/Dha/Epa/Phospho/Ast [Krill Oil 1,000 mg Softgel] 1 cap PO DAILY 05/13 [History] Losartan [Cozaar] 25 mg PO DAILY 05/13/18 [History] Thyroid (Amour) [[place] Thyroid] 30 mg PO DAILY 05/13/18 [History] Ubidecarenone/Vit E Acetate [Co Q-10 100 mg Softgel] 1 cap PO DAILY 05/13/18 [ History] cloNIDine HCl [CloNIDine HCl] 0.1 mg PO BID 05/13/18 [History] 3 Allergy/AdvReac Type Severity Reaction Status Date / Time Erythromycin Base Allergy Hives Verified 05/11/18 14:28 Iodinated Contrast- Oral and Allergy Swelling Verified 05/11/18 14:28 IV Dye of [Iodinated Contrast Media - Lip/Tongue/Throat IV Dye] Penicillins Allergy Hives Verified 05/11/18 14:28 egg AdvReac Rash Verified 05/13/18 13:19 gluten AdvReac Rash Verified 05/11/18 14:28 lactase [From Dairy Aid] AdvReac Diarrhea Verified 05/13/18 13:19 nut - unspecified AdvReac Hives Verified 05/13/18 13:19 Hospitalist - CN: Exam - Constitutional Vitals: Temp Pulse Resp BP Pulse Ox 98.2 F 100 15 161/68 96 05/18/18 12:27 05/18/18 12:27 05/18/18 12:27 05/18/18 12:27 05/18/18 12:27 Internal Medicine - CN: Reslt - Labs CBC & Chem 7: 05/16/18 10:40 05/16/18 10:40 Consult Discharge Plan - Plan Referrals: Zach Connelly MD [Partnered Physician] - 05/26/18 1:25 pm Maryan Chapin CNP [Primary Care Provider] - - Attending Attestation I examined this patient and my medical decision-making was reviewed with the Resident Physician Dr Gonzalez. I agree with the documented findings, disposition and treatment plan as described except to the extent set forth below /addl details below Ms Jha has med hx of metastatic cancer that resulted in sbo prompting partial right colectomy by surgery. She has had difficulty with oral intake with nausea and emesis and had ileus. In recent days she has had sinus tachycardia and hypertension and Hopsitalist service contacted for assistance in med management of these issues. Awake, family at bedside. No abd pain currently, denies any chest pain, pressure or vision changes with elevated bps. Has had intermittent parks with hypertension. She cont to have nausea and emesis and has been able to keep down her losartan in the morning. She denies palpitations and cannot tell her heart rate is fast at times. gen- alert, awake,appears stated age eyes- pupils equal round, no conjunctival pallor cv- tachy rate and regular rhythm, normal s1,s2, no murmurs appreciated, radial pulse 2+ and regular, no le edema, no jvd lungs- ctabl, no wheezing, rhonchi or crackles, normal resp effort on ra abd- soft, mildly tender , + bs, non distended skin: no pallor, warm dry neuro- AAOx3, CN grossly intact Hypertension with Bps 160-180/70-90s in last 2 days- is on home losartan, home lconidine held for emesis after taking it previously; would rec cont home losartan, cont home clonidine, d/w pt rn pre medicating with anti emetic before meds, would dc prn hydralazine as this may be elevating heart rate, cont iv prn lopressor, cont prn pain control; if additionof home meds dose not improve bps to goal then next step would be standing lopressor po BID (would start at 12.5 mg BID) Tachycardia, sinus tach on prior ekg on admit, HR up to 120 recorded- obtain ekg now to confirm, cont tele, check electrolytes and hgb, she ahs had poor oral intake, but is net + 7L this admit, check cmp n am to assess protein status as she may be intravascularly depleted of fluid contributing to tachycardia, cont prn lopressor, may end up needing to add standing po lopressor as above but will hold off at this time and monitor bp with med changes above <Hema Gonzalez - Last Filed: 05/18/18 17:13> Date of Encounter: 05/18/18 Time of Encounter: 15:07 - Assessment and plan (1) Tachycardia Current Visit: Yes Status: Acute Assessment and plan: - Tachycardia with most recent heart rate of 100 - During hospital stay, heart rate of maximum 120 - EKG performed at admission shows normal sinus rhythm with rate control. No signs of ischemia - Patient denies history of tachycardia, has been receiving metoprolol 5 mg when necessary - Etiology is likely multifactorial including pain, dehydration, reflex from hydralazine - Patient is notably +7 L since admission however there is evidence of pedal edema and there may be a component of third spacing - Infectious etiology is not high on my differential she is not having symptoms other than possible sinus and she has been afebrile with no WBC elevation and minimal symptoms. We will obtain labs as below and continue to monitor. Will not start antibiotics at this time Plan - Continue metoprolol when necessary, discontinue hydralazine - Continue home meds for hypertension as below - Pain control per general surgery team - We will obtain repeat labs today to evaluate for possible infectious etiology however suspicion remains low at this time - We will obtain CMP, CBC, magnesium with a.m. labs to evaluate for malnutrition and third spacing or electrolyte abnormalities - Obtain repeat EKG now (2) Hypertension Current Visit: Yes Status: Chronic Assessment and plan: - Chronic essential hypertension has been relatively poorly controlled after surgery - Blood pressure most recently 161/68 - Pressure has been difficult to control with maximum systolic pressure of 180 - Refractory pressure possibly elevated secondary to pain versus changing of home medications - Suspect that absence of clonidine may be playing a role Plan - We will continue home losartan, restart home clonidine, continue metoprolol when necessary - Continue to monitor and make adjustments as necessary Qualifiers: Hypertension type: essential hypertension Qualified Code(s): I10 - Essential (primary) hypertension (3) Breast cancer metastasized to large intestine Current Visit: Yes Status: Acute Assessment and plan: - Postoperative day #5 following right hemicolectomy per general surgery - Patient is tolerating her pain well with minimal complaints of nausea - Further management per general surgery Qualifiers: Laterality: right Qualified Code(s): C50.911 - Malignant neoplasm of unspecified site of right female breast; 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 (4) Breast cancer metastasized to bone Current Visit: Yes Status: Chronic Assessment and plan: Known history of breast cancer with metastasis to both bone and colon Further management as outpatient and general surgery team Qualifiers: Laterality: unspecified laterality Qualified Code(s): C50.919 - Malignant neoplasm of unspecified site of unspecified female breast (5) DVT prophylaxis Current Visit: Yes Status: Acute Assessment and plan: Recommendations per general surgery - Time Spent With Patient Total time spent is greater than 50% in coordination of care (as documented) at patient's floor/unit and/or counseling patient: Internal Medicine - CN: HPI - Data of Consult Consult date: 05/18/18 Requesting Physician: Zach Connelly MD - Consult Narrative Reason for consult: Tachycardia, hypertension History of present illness: Ms. Jha is a 87 year old female with past medical history of hypertension, breast cancer with metastasis to bone and colon, acoustic neuroma status post surgical removal in 1974 who was admitted to surgery service for colonic metastasis and is postoperative day #5 for right colon resection. Overall she states she is doing well with complaints of only nausea and possible upper respiratory infection. Hospitalist service was consulted for tachycardia and hypertension. Upon chart review, heart rate has been consistently in the 100s and has a maximum of 120, blood pressure has been around the 160s/60s with a maximum systolic of 180. Patient states that she has never had issues with tachycardia in the past although does take clonidine and losartan at home for her blood pressure. She is denying any symptoms of fevers, chills, chest pain, palpitations, shortness of breath, vomiting, pain. She does admit to some lower extremity swelling in bilateral feet but denies any history of heart failure. She does admit to some nasal congestion with thick yellow sputum which she does cough up. She has resumed her diet per surgery recommendations and has been tolerating this well except for the nausea. She is also been receiving fluids and is +7 L since admission. Past medical history as above Past surgical history includes total hysterectomy, appendectomy, cholecystectomy , right hemicolectomy, acoustic neuroma surgical resection Social history: Denies ever smoking, rare alcohol use, denies drug use Patient has been receiving home losartan, hydralazine when necessary, metoprolol when necessary. Most recent laboratory results grossly unremarkable Past Med Surg Social Fam HX - Past Medical History Medical history: cancer, thyroid disease Psychiatric history: no psych history - Past Surgical History Surgical History: appendectomy, cholecystectomy, hysterectomy, other Additional surgical history: Accoustic Neuroma, tonsilectomy - Social History Smoking Status: Unknown if ever smoked Smokeless Tobacco Status: No Alcohol use: none Drug use: none - Family History Mother Living Status: Hx Family Cardiac Disorders: Yes (CHF) Review of systems: - Constitutional: Denies fevers, chills, weight loss, generalized fatigue - 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 Admits to nasal congestion Denies vision changes/blurriness, tinnitus, auditory changes, rhinorrhea, , sore throat, odynaphagia - CVS: Admits to pedal edema. Denies chest pain, palpitations, JIANG, orthopnea, PND, - Pulm: Admits to productive cough with thick yellow sputum production. Denies SOB, hematemesis, wheezing - GI: Admits to abdominal soreness, loose bowel movements. Denies abdominal pain, anorexia, nausea, vomiting, diarrhea, constipation, melena - : Denies dysuria, increased frequency, urgency, hematuria, - Skin: Denies rashes, ulcers, color changes, - Neuro: Denies PARKS, paresthesias, focal deficits, numbness, tingling Hospitalist - CN: Exam - Constitutional Vitals: Temp Pulse Resp BP Pulse Ox 98.2 F 100 15 161/68 96 10/07/18 12:27 05/18/18 12:27 05/18/18 12:27 05/18/18 12:27 05/18/18 12:27 Exam: Gen.: Vitals noted. No acute distress. AAOx3, resting comfortably in bed HEENT: PERRL/EOMI, oropharynx clear, Normocephalic, atraumatic, MMM Cardiac: RRR, no murmur, +S1/S2, tachycardic, possible systolic murmur Pulmonary: CTA bilaterally, no wheezes, rales or rhonchi, equal chest expansion Abdomen: soft, mildly tender to palpation in epigastric and right lower quadrant , BS diminished but present, no guarding, no rebound. Extremities: Pedal edema present bilaterally, trace pitting edema in lower extremities, nontender calf, no cyanosis or clubbing Neuro: A&Ox3, moves all extremities, no focal deficits Psych: Appropriate mood and behavior Internal Medicine - CN: Reslt - Labs CBC & Chem 7: 05/16/18 10:40 05/16/18 10:40
[2018-05-18 17:46] LABS: Basophils % 0.1 %; Eosinophils % 0.1 %; Hematocrit 27.3 % (35.3-44.9); Hemoglobin 8.7 g/dL (11.5-15.4); Lymphocytes # 0.5 K/mcL (0.6-4.6); Lymphocytes % 6.8 %; Mean Corpuscular HGB Conc 31.9 g/dL (31.6-35.5); Mean Corpuscular Hemoglobin 29.3 pg (28.0-33.3); Mean Corpuscular Volume 91.9 fL (83.0-100.0); Monocytes # 0.5 K/mcL (0.0-1.3); Monocytes % 6.7 %; Neutrophils # 5.7 K/mcL (1.6-8.9); Platelet Count 277 K/mcL (140-400); Red Blood Count 2.97 M/mcL (3.82-4.97); Red Cell Distribution Width 16.1 % (11.5-14.5); Segmented Neutrophils % 85.3 %
[2018-05-18 18:00] LABS: BUN/Creatinine Ratio 19 (6-26); Blood Urea Nitrogen 10 mg/dL (8-23); Carbon Dioxide 15 mEq/L (23-29); Chloride 113 mEq/L (98-107); Glucose 144 mg/dL (70-105); Osmolality,Calculated 292 (280-300); Sodium 140 mEq/L (136-145); eGFR For Non-African Americans > 60 (> 60)
[2018-05-18] MEDS: cloNIDine HCl 0.1 MG TABLET PO SCH (20:59)
[2018-05-19] MEDS: Metoclopramide 10 MG/2 ML VIAL IVP SCH ×3 (01:02→20:36)
[2018-05-19] MEDS: MORPHINE SUL Oral CONC 10 MG/0.5 ML ORAL.SYG SL PRN (01:09)
[2018-05-19] MEDS: *HR* OxyCODONE/APAP 5/325 TABLET PO PRN ×2 (03:34→17:41)
[2018-05-19] MEDS: *HR* Heparin 5,000 UNIT/ML VIAL SQ SCH ×2 (03:34→17:41)
[2018-05-19 03:41] LABS: Basophils % 0.4 %; Eosinophils % 0.2 %; Hematocrit 23.7 % (35.3-44.9); Hemoglobin 7.5 g/dL (11.5-15.4); Immature Granulocytes % 0.7 % (0-4); Lymphocytes # 0.7 K/mcL (0.6-4.6); Lymphocytes % 13.1 %; Mean Corpuscular HGB Conc 31.6 g/dL (31.6-35.5); Mean Corpuscular Hemoglobin 29.4 pg (28.0-33.3); Mean Corpuscular Volume 92.9 fL (83.0-100.0); Mean Platelet Volume 8.6 fL (9.4-12.4); Monocytes # 0.8 K/mcL (0.0-1.3); Monocytes % 15.1 %; Neutrophils # 3.9 K/mcL (1.6-8.9); Platelet Count 284 K/mcL (140-400); Red Blood Count 2.55 M/mcL (3.82-4.97); Red Cell Distribution Width 16.2 % (11.5-14.5); Segmented Neutrophils % 70.5 %
[2018-05-19 04:00] LABS: Alanine Aminotransferase 12 Units/L (7-52); Albumin 2.5 g/dL (3.5-5.7); Albumin/Globulin Ratio 1.1 (1.1-2.2); Alkaline Phosphatase 47 Units/L (34-104); Aspartate Amino Transferase 16 Units/L (13-39); BUN/Creatinine Ratio 19 (6-26); Bilirubin,Total 0.3 mg/dL (0.3-1.0); Blood Urea Nitrogen 10 mg/dL (8-23); Calcium 7.5 mg/dL (8.6-10.3); Carbon Dioxide 19 mEq/L (23-29); Chloride 113 mEq/L (98-107); Globulin 2.2 g/dL (2.4-3.5); Glucose 116 mg/dL (70-105); Magnesium 1.6 mg/dL (1.6-2.6); Osmolality,Calculated 290 (280-300); Potassium 3.3 mEq/L (3.5-5.1); Sodium 140 mEq/L (136-145); Total Protein 4.7 g/dL (6.4-8.9); eGFR For Non-African Americans > 60 (> 60)
[2018-05-19] MEDS: 0.9 % Sodium Chloride 1,000 ML IVC SCH (05:57)
--- NOTE | 2018-05-19 08:10 | General Surgery Progress Note ---
Date of Encounter: 05/20/18 Time of Encounter: 08:07 - Assessment and Plan (1) Breast cancer metastasized to large intestine Current Visit: Yes Status: Acute Overall improvement in nausea. Will DC Phenergan. Will also start soft diet ( patient has been encouraged at family members bring in food from outside hospital). She continues to improve then likely will discharge home within the next 24 hours. Hep-Lock IV fluids. 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 Qualifiers: Hypertension type: essential hypertension Qualified Code(s): I10 - Essential (primary) hypertension (3) Tachycardia Current Visit: Yes Status: Acute Noted also patient with tachycardia. Will consult hospitalist as mentioned above. Subjective Patient reports: other (Patient denies any nausea. Positive flatus. Positive BM.) Objective Vital Signs - Last 8 Hours Temp Pulse Resp BP Pulse Ox 05/19/18 06:40 97.9 F 95 14 120/56 93 05/19/18 04:02 98.5 F 96 16 138/53 95 Intake and Output 05/18/18 05/19/18 05/19/18 23:59 07:59 15:59 Intake Total 1180 / 1180 120 / 120 Output Total 0 / 0 0 / 0 Balance 1180 / 1180 120 / 120 Intake: IV Fluids 620 / 620 0.9 % Sodium Chloride 1,000 ML 620 / 620 @ 80 mls/hr IVC .[id number] [facility] Rx #:[id number] Oral 560 / 560 120 / 120 Output: Urine 0 / 0 0 / 0 Other: Meal clears dinner Percent of Meal Consumed 0% Stool Size Large Stool Consistency loose Stool Color Brown Green # Voids 1 1 # Bowel Movement Diapers 1 Weight 53.2 kg Patient Weight 05/19/18 23:59 Weight 53.2 kg - General physical appearance no distress - Abdomen Abdomen: Present: bowel sounds present, soft, non tender - Incision Incision: Present: clean and dry, intact (No drainage.) - Labs 05/20/18 07:57 05/20/18 07:57 Diabetes panel 05/18/18 05/19/18 Range/Units 17:34 03:27 Sodium 140 140 (136-145) mEq/L Potassium 4.0 3.3 L (3.5-5.1) mEq/L Chloride 113 H 113 H (98-107) mEq/L Carbon Dioxide 15 L 19 L (23-29) mEq/L BUN 10 10 (8-23) mg/dL Creatinine 0.52 L 0.52 L (0.60-1.20) mg/dL Glucose 144 H 116 H (70-105) mg/dL Calcium 8.0 L 7.5 L (8.6-10.3) mg/dL AST 16 (13-39) Units/L ALT 12 (7-52) Units/L Alkaline Phosphatase 47 (34-104) Units/L Albumin 2.5 L (3.5-5.7) g/dL Calcium panel 05/18/18 05/19/18 Range/Units 17:34 03:27 Calcium 8.0 L 7.5 L (8.6-10.3) mg/dL Albumin 2.5 L (3.5-5.7) g/dL Pituitary panel 05/18/18 05/19/18 Range/Units 17:34 03:27 Sodium 140 140 (136-145) mEq/L Potassium 4.0 3.3 L (3.5-5.1) mEq/L Chloride 113 H 113 H (98-107) mEq/L Carbon Dioxide 15 L 19 L (23-29) mEq/L BUN 10 10 (8-23) mg/dL Creatinine 0.52 L 0.52 L (0.60-1.20) mg/dL Glucose 144 H 116 H (70-105) mg/dL Calcium 8.0 L 7.5 L (8.6-10.3) mg/dL Adrenal panel 05/18/18 05/19/18 Range/Units 17:34 03:27 Sodium 140 140 (136-145) mEq/L Potassium 4.0 3.3 L (3.5-5.1) mEq/L Chloride 113 H 113 H (98-107) mEq/L Carbon Dioxide 15 L 19 L (23-29) mEq/L BUN 10 10 (8-23) mg/dL Creatinine 0.52 L 0.52 L (0.60-1.20) mg/dL Glucose 144 H 116 H (70-105) mg/dL Calcium 8.0 L 7.5 L (8.6-10.3) mg/dL Total Bilirubin 0.3 (0.3-1.0) mg/dL AST 16 (13-39) Units/L ALT 12 (7-52) Units/L Alkaline Phosphatase 47 (34-104) Units/L Albumin 2.5 L (3.5-5.7) g/dL Consult Discharge Plan - Plan Instructions: Oxycodone/Acetaminophen (By mouth), Laxative, Stool Softeners ( By mouth), Ondansetron (By mouth), Laparoscopic Bowel Resection (DC) Referrals: Zach Connelly MD [Partnered Physician] - 05/26/18 1:25 pm Maryan Chapin CNP [Primary Care Provider] - 05/26/18 10:00 am Prescriptions: Ondansetron HCl [Zofran] 4 mg PO Q6HR PRN #20 tab PRN Reason: Nausea And Vomiting OxyCODONE/APAP 5/325 [Percocet 5/325 MG] 1 each PO Q6HR PRN 7 Days #28 tablet PRN Reason: Moderate Pain Docusate [Colace] 100 mg PO BID #30 capsule
[2018-05-19] MEDS: Thyroid (Amour) 30 MG TABLET PO SCH (08:12)
[2018-05-19] MEDS: cloNIDine HCl 0.1 MG TABLET PO SCH ×2 (08:12→20:14)
[2018-05-19] MEDS: Pantoprazole 40 MG VIAL IVP SCH (08:13)
[2018-05-19] MEDS: Ibuprofen 600 MG TABLET PO PRN ×2 (12:40→20:13)
--- NOTE | 2018-05-19 15:25 | Internal Med Progress Note ---
<Flor Jones - Last Filed: 05/19/18 15:41> Hospitalist Progress Note - Encounter Date of Encounter: 05/19/18 - Exam Vitals: Temp Pulse Resp BP Pulse Ox 98.0 F 89 14 129/66 94 05/19/18 14:36 05/19/18 14:36 05/19/18 14:36 05/19/18 14:36 05/19/18 14:36 - Time Spent with Patient Total time spent is greater than 50% in coordination of care (as documented) at patient's floor/unit and/or counseling patient: Internal Medicine: Result - Labs CBC & Chem 7: 05/19/18 03:27 05/19/18 03:27 Labs: Short CBC 05/18/18 05/19/18 Range/Units 15:05 03:27 WBC 6.7 5.6 (4.3-11.1) K/mcL Hgb 8.7 L 7.5 L (11.5-15.4) g/dL Hct 27.3 L 23.7 L (35.3-44.9) % Plt Count 277 284 (140-400) K/mcL Neutrophils # 5.7 3.9 (1.6-8.9) K/mcL BMP 05/18/18 05/19/18 17:34 03:27 Sodium 140 140 Potassium 4.0 3.3 L Chloride 113 H 113 H Carbon Dioxide 15 L 19 L BUN 10 10 Creatinine 0.52 L 0.52 L Glucose 144 H 116 H Calcium 8.0 L 7.5 L Liver Function 05/19/18 Range/Units 03:27 Total Bilirubin 0.3 (0.3-1.0) mg/dL AST 16 (13-39) Units/L ALT 12 (7-52) Units/L Alkaline Phosphatase 47 (34-104) Units/L Albumin 2.5 L (3.5-5.7) g/dL Consult Discharge Plan - Plan Referrals: Zach Connelly MD [Partnered Physician] - 05/26/18 1:25 pm ,Maryan Gates CNP [Primary Care Provider] - - Attending Attestation I examined this patient and my medical decision-making was reviewed with the Resident Physician Dr Pierce. I agree with the documented findings, disposition and treatment plan as described except to the extent set forth below/addl details below Ms Jha has med hx of metastatic cancer that resulted in sbo prompting partial right colectomy by surgery. She has had difficulty with oral intake with nausea and emesis and had ileus. In recent days she has had sinus tachycardia and hypertension and Hopsitalist service contacted for assistance in med management of these issues. Awake, no family present. no fleming, chest pain, palpitations, sob or presyncope. No complaints. Denies le edema, or hx chf. gen- alert, awake,appears stated age eyes- pupils equal round, no conjunctival pallor cv- normal rate and regular rhythm, normal s1,s2, no murmurs appreciated, radial pulse 2+ and regular, no le edema, trace jvd lungs- ctabl, no wheezing, rhonchi or crackles, normal resp effort on ra abd- soft, non tender , + bs, non distended skin: no pallor, warm dry neuro- AAOx3 Hypertension with Bps 160-180/70-90s in last 2 days- npw normotensive -cont home losartan and clonidine as bps at goal with prn BB Sinus tachycardia, HRs 90s-100s -likely multifactorial given anemia, pain, poor oral intake, while she has mild jvd and +>7 liters this admission, given her low protein status she may be intravascularly depleted -defer to surgery regarding anemia and transfusions as needed -would replete K and mag daily to >4 and >2 respectively -cont to monitor fluid status, nutrtion as per surgery -prn lopressor with parameters <Melissa Pierce - Last Filed: 05/19/18 17:56> Hospitalist Progress Note - Encounter Date of Encounter: 05/19/18 Time of Encounter: 02:47 - Subjective Interval History: Berkley Jha is an 87-year-old female with a history of metastatic breast cancer that resulted in a in SBO requiring a partial right colectomy. She has had difficulty with oral intake, nausea, vomiting, as well as ileus. The hospitalist service was consulted due to recent sinus tachycardia and hypertension. Today she was found lying comfortably in bed with a complaint of feeling tired. She denied any chest pain, palpitations, shortness of breath, lightheadedness , dizziness, headache, fever, or chills. - Exam Vitals: Temp Pulse Resp BP Pulse Ox 98.0 F 89 14 129/66 94 05/19/18 14:36 05/19/18 14:36 05/19/18 14:36 05/19/18 14:36 05/19/18 14:36 Exam: Gen.: NAD. AAOx3, Lying comfortably in bed HEENT: EOMI, Normocephalic, atraumatic Cardiac: RRR, no murmur, normal S1/S2 Pulmonary: CTAB, no wheezes, normal respiratory effort Abdomen: soft, mildly tender near surgical site, non-distended, bs noted Extremities: trace pitting edema in lower extremities Neuro: no focal deficits Psych: Appropriate mood and behavior - Assessment and Plan (1) Hypertension Current Visit: Yes Status: Chronic Assessment and Plan: Patient was hypertensive past couple days 120s to 130s over 50s to 60s today, improved Continue home losartan and clonidine with when necessary beta shaye We will continue to monitor (2) Tachycardia Current Visit: Yes Status: Acute Assessment and Plan: Likely multifactorial, considering anemia, pain, poor intake, likely dehydration Defer to surgery regarding anemia and transfusions as needed Recommend repleting potassium and magnesium daily with a goal of greater than 4 and greater than 2 respectively Continue to monitor fluid status and nutrition Recommend Lopressor as needed with parameters DVT Prophylaxis: Cutaneous heparin - Time Spent with Patient Total time spent is greater than 50% in coordination of care (as documented) at patient's floor/unit and/or counseling patient: Internal Medicine: Result - Labs CBC & Chem 7: 05/19/18 03:27 05/19/18 03:27 Labs: Short CBC 05/18/18 05/19/18 Range/Units 15:05 03:27 WBC 6.7 5.6 (4.3-11.1) K/mcL Hgb 8.7 L 7.5 L (11.5-15.4) g/dL Hct 27.3 L 23.7 L (35.3-44.9) % Plt Count 277 284 (140-400) K/mcL Neutrophils # 5.7 3.9 (1.6-8.9) K/mcL BMP 05/18/18 05/19/18 17:34 03:27 Sodium 140 140 Potassium 4.0 3.3 L Chloride 113 H 113 H Carbon Dioxide 15 L 19 L BUN 10 10 Creatinine 0.52 L 0.52 L Glucose 144 H 116 H Calcium 8.0 L 7.5 L Liver Function 05/19/18 Range/Units 03:27 Total Bilirubin 0.3 (0.3-1.0) mg/dL AST 16 (13-39) Units/L ALT 12 (7-52) Units/L Alkaline Phosphatase 47 (34-104) Units/L Albumin 2.5 L (3.5-5.7) g/dL <Melissa Pierce - Last Filed: 05/19/18 17:56> (1) Hypertension Qualifiers: Hypertension type: essential hypertension Qualified Code(s): I10 - Essential (primary) hypertension
[2018-05-19] MEDS ORDERED: Potassium Chloride 40 MEQ, Lidocaine 1% 2 ML in D5% in Water 500 ML IVPB ONE (15:54)
[2018-05-19 17:59] LABS: Basophils % 0.5 %; Eosinophils # 0.1 K/mcL (0.0-0.6); Eosinophils % 2.2 %; Hemoglobin 8.3 g/dL (11.5-15.4); Immature Granulocytes % 1.5 % (0-4); Lymphocytes # 0.9 K/mcL (0.6-4.6); Lymphocytes % 16.4 %; Mean Corpuscular HGB Conc 31.9 g/dL (31.6-35.5); Mean Corpuscular Hemoglobin 29.3 pg (28.0-33.3); Mean Corpuscular Volume 91.9 fL (83.0-100.0); Mean Platelet Volume 8.7 fL (9.4-12.4); Monocytes # 0.8 K/mcL (0.0-1.3); Monocytes % 15.3 %; Neutrophils # 3.5 K/mcL (1.6-8.9); Platelet Count 327 K/mcL (140-400); Red Blood Count 2.83 M/mcL (3.82-4.97); Red Cell Distribution Width 16.5 % (11.5-14.5); Segmented Neutrophils % 64.1 %
[2018-05-19 18:20] LABS: Alanine Aminotransferase 12 Units/L (7-52); Albumin 2.8 g/dL (3.5-5.7); Albumin/Globulin Ratio 1.2 (1.1-2.2); Alkaline Phosphatase 55 Units/L (34-104); Aspartate Amino Transferase 19 Units/L (13-39); BUN/Creatinine Ratio 20 (6-26); Bilirubin,Total 0.4 mg/dL (0.3-1.0); Blood Urea Nitrogen 12 mg/dL (8-23); Calcium 8.1 mg/dL (8.6-10.3); Carbon Dioxide 20 mEq/L (23-29); Chloride 113 mEq/L (98-107); Globulin 2.3 g/dL (2.4-3.5); Glucose 108 mg/dL (70-105); Osmolality,Calculated 292 (280-300); Potassium 3.3 mEq/L (3.5-5.1); Sodium 141 mEq/L (136-145); Total Protein 5.1 g/dL (6.4-8.9); eGFR For Non-African Americans > 60 (> 60)
[2018-05-20 00:36] LABS: Bilirubin,Urine Moderate (Negative); Blood,Urine Negative (Negative); Clarity,Urine Clear (Clear); Color,Urine Dark Yellow (Yellow); Glucose,Urine (UA) Normal (Normal); Ketones,Urine 15 mg/dL (Negative); Leukocyte Esterase,Urine Negative (Negative); Nitrite,Urine Negative (Negative); Protein,Urine 30 mg/dL (Neg-Trace); Specific Gravity,Urine 1.019 (1.010-1.025); Urobilinogen,Urine Normal (Normal)
[2018-05-20 00:39] LABS: Bacteria,Urine None Seen per hpf (None-Few); Squamous Epithelial Cell,Urine Many per lpf (None-Few)
[2018-05-20 00:59] LABS: Hyaline Casts,Urine Few per lpf (None-Few)
[2018-05-20] MEDS: *HR* Heparin 5,000 UNIT/ML VIAL SQ SCH (02:53)
[2018-05-20] MEDS: MORPHINE SUL Oral CONC 10 MG/0.5 ML ORAL.SYG SL PRN (02:56)
[2018-05-20] MEDS: *HR* OxyCODONE/APAP 5/325 TABLET PO PRN (04:17)
[2018-05-20 07:13] VITALS: BP 151/69
[2018-05-20] MEDS: Pantoprazole 40 MG VIAL IVP SCH (07:40)
[2018-05-20] MEDS: Thyroid (Amour) 30 MG TABLET PO SCH (07:40)
[2018-05-20] MEDS: cloNIDine HCl 0.1 MG TABLET PO SCH (07:40)
[2018-05-20 08:12] LABS: Basophils % 0.6 %; Eosinophils # 0.4 K/mcL (0.0-0.6); Eosinophils % 6.3 %; Hematocrit 28.6 % (35.3-44.9); Immature Granulocytes % 0.9 % (0-4); Lymphocytes # 0.8 K/mcL (0.6-4.6); Mean Corpuscular HGB Conc 31.5 g/dL (31.6-35.5); Mean Corpuscular Hemoglobin 29.2 pg (28.0-33.3); Mean Corpuscular Volume 92.9 fL (83.0-100.0); Mean Platelet Volume 8.5 fL (9.4-12.4); Monocytes # 0.8 K/mcL (0.0-1.3); Monocytes % 12.8 %; Neutrophils # 4.3 K/mcL (1.6-8.9); Platelet Count 350 K/mcL (140-400); Red Blood Count 3.08 M/mcL (3.82-4.97); Red Cell Distribution Width 16.5 % (11.5-14.5); Segmented Neutrophils % 66.4 %
[2018-05-20 08:57] LABS: BUN/Creatinine Ratio 22 (6-26); Blood Urea Nitrogen 12 mg/dL (8-23); Calcium 7.9 mg/dL (8.6-10.3); Carbon Dioxide 19 mEq/L (23-29); Chloride 111 mEq/L (98-107); Glucose 104 mg/dL (70-105); Magnesium 1.6 mg/dL (1.6-2.6); Osmolality,Calculated 286 (280-300); Phosphorous 1.9 mg/dL (2.7-4.5); Potassium 3.6 mEq/L (3.5-5.1); Sodium 138 mEq/L (136-145); eGFR For Non-African Americans > 60 (> 60)
--- NOTE | 2018-05-20 09:00 | Internal Med Progress Note ---
<Melissa Pierce - Last Filed: 05/20/18 14:37> Hospitalist Progress Note - Encounter Date of Encounter: 05/20/18 Time of Encounter: 09:12 - Subjective Interval History: Berkley Jha is an 87-year-old female with a history of metastatic breast cancer that resulted in a in SBO requiring a partial right colectomy. She has had difficulty with oral intake, nausea, vomiting, as well as ileus. The hospitalist service was consulted due to recent sinus tachycardia and hypertension. Patient seen lying comfortably in bed with a complaint of mild abdominal tenderness and band like pressure across her lower chest since having a coughing fit after choking on some jello yesterday. She tolerated scrambled eggs for breakfast this morning without difficulty. Her blood pressure and heart rate have been stable since restarting her home BP medications. She denied any chest pain, palpitations, shortness of breath, lightheadedness, dizziness, headache, fever, or chills. - Exam Vitals: Temp Pulse Resp BP Pulse Ox 97.6 F 93 15 151/69 96 05/20/18 07:11 05/20/18 07:11 05/20/18 07:11 05/20/18 07:11 05/20/18 07:11 Exam: Gen.: NAD. AAOx3, Lying comfortably in bed HEENT: EOMI, Normocephalic, atraumatic Cardiac: RRR, no murmur, normal S1/S2 Pulmonary: CTAB, no wheezes, normal respiratory effort Abdomen: soft, mildl diffuse tenderness, non-distended, bs noted, surgical incisions without erythema with cecil intact Extremities: trace pitting edema in lower extremities Neuro: no focal deficits Psych: Appropriate mood and behavior - Assessment and Plan (1) Hypertension Status: Chronic Assessment and Plan: Patient was hypertensive in 180-190s systolic, Hospitalist consulted to manage 1200-150s/50-60s over past 24 hours since restarting home medications Continue home losartan and clonidine upon discharge (2) Tachycardia Status: Acute Assessment and Plan: Likely multifactorial, considering anemia, pain, poor intake, likely dehydration Improved with HR 80-90s in the last 24 hours Defer to surgery regarding anemia and transfusions as needed Recommend repleting potassium and magnesium daily with a goal of greater than 4 and greater than 2 respectively Continue to monitor fluid status and nutrition Recommend Lopressor as needed with parameters DVT Prophylaxis: Cutaneous heparin - Time Spent with Patient Total time spent is greater than 50% in coordination of care (as documented) at patient's floor/unit and/or counseling patient: less than 15 minutes Internal Medicine: Result - Labs CBC & Chem 7: 05/20/18 07:57 05/20/18 07:57 Labs: Short CBC 05/19/18 05/20/18 Range/Units 17:43 07:57 WBC 5.5 6.4 (4.3-11.1) K/mcL Hgb 8.3 L 9.0 L (11.5-15.4) g/dL Hct 26.0 L 28.6 L (35.3-44.9) % Plt Count 327 350 (140-400) K/mcL Neutrophils # 3.5 4.3 (1.6-8.9) K/mcL BMP 05/19/18 05/20/18 17:43 07:57 Sodium 141 138 Potassium 3.3 L 3.6 Chloride 113 H 111 H Carbon Dioxide 20 L 19 L BUN 12 12 Creatinine 0.60 0.55 L Glucose 108 H 104 Calcium 8.1 L 7.9 L Liver Function 05/19/18 Range/Units 17:43 Total Bilirubin 0.4 (0.3-1.0) mg/dL AST 19 (13-39) Units/L ALT 12 (7-52) Units/L Alkaline Phosphatase 55 (34-104) Units/L Albumin 2.8 L (3.5-5.7) g/dL Urine 05/20/18 Range/Units 00:13 Urine Color Dark Yellow (Yellow) Urine Clarity Clear (Clear) Urine pH 6.0 (5.0-8.0) pH Units Ur Specific [place] 1.019 (1.010-1.025) Urine Protein 30 H (Neg-Trace) mg/dL Urine Glucose (UA) Normal (Normal) mg/dL Consult Discharge Plan - Plan Instructions: Oxycodone/Acetaminophen (By mouth), Laxative, Stool Softeners ( By mouth), Ondansetron (By mouth), Laparoscopic Bowel Resection (DC) Referrals: Zach Connelly MD [Partnered Physician] - 05/26/18 1:25 pm radhaMaryan CNP [Primary Care Provider] - 05/26/18 10:00 am Prescriptions: Ondansetron HCl [Zofran] 4 mg PO Q6HR PRN #20 tab PRN Reason: Nausea And Vomiting OxyCODONE/APAP 5/325 [Percocet 5/325 MG] 1 each PO Q6HR PRN 7 Days #28 tablet PRN Reason: Moderate Pain Docusate [Colace] 100 mg PO BID #30 capsule <Kameron Bunn - Last Filed: 05/21/18 07:51> Hospitalist Progress Note - Encounter Date of Encounter: 05/20/18 - Exam Vitals: Temp Pulse Resp BP Pulse Ox 97.6 F 93 15 151/69 96 05/20/18 07:11 05/20/18 07:11 05/20/18 07:11 05/20/18 07:11 05/20/18 07:11 - Time Spent with Patient Total time spent is greater than 50% in coordination of care (as documented) at patient's floor/unit and/or counseling patient: Internal Medicine: Result - Labs CBC & Chem 7: 05/20/18 07:57 05/20/18 07:57 Labs: Short CBC 05/20/18 Range/Units 07:57 WBC 6.4 (4.3-11.1) K/mcL Hgb 9.0 L (11.5-15.4) g/dL Hct 28.6 L (35.3-44.9) % Plt Count 350 (140-400) K/mcL Neutrophils # 4.3 (1.6-8.9) K/mcL BMP 05/20/18 07:57 Sodium 138 Potassium 3.6 Chloride 111 H Carbon Dioxide 19 L BUN 12 Creatinine 0.55 L Glucose 104 Calcium 7.9 L - Attending Attestation Pt not seen. Discharged by surgery. <Melissa Pierce C - Last Filed: 05/20/18 14:37> (1) Hypertension Qualifiers: Hypertension type: essential hypertension Qualified Code(s): I10 - Essential (primary) hypertension
--- NOTE | 2018-05-20 10:04 | Discharge Summary ---
Addendum entered and electronically signed by Zach Connelly MD 06/04/18 05:34: Correction; anemia of unknown origin with hemodilution. Thank you. Addendum entered and electronically signed by Zach Connelly MD 06/04/18 05:31: Discharge diagnosis also includes anemia of unknown origin. AQ. Original Note: - NOTES TO OUTPATIENT PROVIDER Notes to Outpatient Provider: Several days after holding clonidine while convalescing from surgery patient had sinus tachycardia that resolved but heart rate continued to be in 80-90s on day of discharge. 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 - multifocal with positive lymph nodes Qualifiers: Laterality: right Qualified Code(s): C50.911 - Malignant neoplasm of unspecified site of right female breast; 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 (2) Ileus following gastrointestinal surgery Priority: Primary Status: Resolved (3) Malignancy Priority: Primary Status: Suspected (4) Hypertension Priority: Secondary Status: Acute Qualifiers: Hypertension type: essential hypertension Qualified Code(s): I10 - Essential (primary) hypertension (5) Hypothyroidism Priority: Secondary Status: Chronic Qualifiers: Hypothyroidism type: unspecified Qualified Code(s): E03.9 - Hypothyroidism, unspecified General Surgery Exam Initial Vital Signs Temp Pulse Resp BP Pulse Ox 98.4 F 88 18 142/65 96 05/13/18 12:06 05/13/18 12:06 05/13/18 12:06 05/13/18 12:06 05/13/18 12:06 - General physical appearance well developed, well nourished, no distress - Eyes PERRL, normal ocular movement - ENT normal pinna, normal nares, normal mucosa, no hearing loss - Respiratory normal expansion, normal respiratory effort, clear to percussion - Cardiovascular Cardiovascular exam: Present: RRR, no murmurs/rubs/gallops - Abdomen Abdomen general surgery: Present: bowel sounds present, soft, non tender (pain now located near ribs ) Hernia: Present: none - Incision Incision: Present: clean and dry, approximated. Absent: draining, erythema, indurated - Integumentary Integumentary general surgery: Present: warm and dry, no abnormal pigmentation, diaphoresis - Neurologic Present: CN 2-12 grossly intact, normal coordination, normal sensation - Musculoskeletal Present: normal gait, normal posture - Psychiatric Psychiatric general surgery: Present: A&Ox3, speech is normal, memory intact - Hospital Course Hospital course: Ms. Jha is a 87 year old female hx metastatic breast cancer underwent right colectomy with Dr Connelly on 05-13-18. She initially recovered well but developed ilues several days post op with continued nausea. She responded well to reglan with multiple normal bowel movements. Her diet was advanced slowly. 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 On POD 7, patient was able to tolerate softs and may advance diet at home . She was discharged with pain medication scripts and referral to home health and PT. - Time Spent with Patient Total time spent providing and/or coordinating discharge services: Greater than 30 minutes - Discharge Medications Prescriptions: Ondansetron HCl [Zofran] 4 mg PO Q6HR PRN #20 tab PRN Reason: Nausea And Vomiting OxyCODONE/APAP 5/325 [Percocet 5/325 MG] 1 each PO Q6HR PRN 7 Days #28 tablet PRN Reason: Moderate Pain Docusate [Colace] 100 mg PO BID #30 capsule Home Medications: Calcium Carbonate/Vitamin D3 [Calcium 500 + Vit D Caplet] 1 tab PO DAILY 05/13/18 [History] Cholecalciferol (D-3) [Vitamin D] 2,000 unit PO DAILY 05/13/18 [History] Cyanocobalamin (Vitamin B-12) [Vitamin B-12] 1,000 mcg PO DAILY 05/13/18 [Hist ory] Ferrous Sulfate [Iron] 325 mg PO DAILY 05/13/18 [History] Glucosamn/Condroitn/C/Mn/[place] [[facility] Glucosamine Chondroitin Tb] 1 tab PO DAILY 05/13/18 [History] Glutamine [l-Glutamine] 500 mg PO DAILY 05/13/18 [History] Krill/Om-3/Dha/Epa/Phospho/Ast [Krill Oil 1,000 mg Softgel] 1 cap PO DAILY 05/13/18 [History] Losartan [Cozaar] 25 mg PO DAILY 05/13/18 [History] Thyroid (Amour) [White Thyroid] 30 mg PO DAILY 05/13/18 [History] Ubidecarenone/Vit E Acetate [Co Q-10 100 mg Softgel] 1 cap PO DAILY 05/13/18 [History] cloNIDine HCl [CloNIDine HCl] 0.1 mg PO BID 05/13/18 [History] Docusate [Colace] 100 mg PO BID #30 capsule 05/20/18 [Rx] Ondansetron HCl [Zofran] 4 mg PO Q6HR PRN #20 tab 05/20/18 [Rx] OxyCODONE/APAP 5/325 [Percocet 5/325 MG] 1 each PO Q6HR PRN 7 Days #28 tablet 05/20/18 [Rx] Allergies/Adverse Reactions: Allergy/AdvReac Type Severity Reaction Status Date / Time Erythromycin Base Allergy Hives Verified 05/11/18 14:28 Iodinated Contrast- Oral and Allergy Swelling Verified 05/11/18 14:28 IV Dye of [Iodinated Contrast Media - Lip/Tongue/Throat IV Dye] Penicillins Allergy Hives Verified 05/11/18 14:28 egg AdvReac Rash Verified 05/13/18 13:19 gluten AdvReac Rash Verified 05/11/18 14:28 lactase [From Dairy Aid] AdvReac Diarrhea Verified 05/13/18 13:19 nut - unspecified AdvReac Hives Verified 05/13/18 13:19 Date of admission: 05/13/18 17:41 Primary care physician: Maryan Chapin CNP Consults: 05/14/18 10:18 Consult to Occupational Therapy [CONS] Routine Comment: Evaluate, develop and implement POC Reason for Consult: post surigcal weakness Does patient have active BEDREST order?: No Is patient medically & hemodynamically stable?: Yes Patient assessed for mobility or mobilized this visit?: No 05/16/18 11:40 Consult to Invasive Line Access Team [CONS] Routine Reason for Consult: IV access Line Type: EPIV 05/18/18 13:10 Consult to Hospitalist [CONS] Stat Consulting Provider: Hospitalist Sam Reason for Consult: Hypertension/tachycardia Time Notified: 13:10 Call Completed: Yes Discharging clinician: Alea Meyer Anticipated date of discharge: 05/20/18 Labs on day of discharge: Labs from last 24 hours 05/20/18 05/20/18 05/20/18 07:57 07:57 00:13 WBC 6.4 RBC 3.08 L Hgb 9.0 L Hct 28.6 L MCV 92.9 MCH 29.2 MCHC 31.5 L RDW 16.5 H Plt Count 350 MPV 8.5 L Immature Gran % 0.9 Seg Neutrophils % 66.4 Lymphocytes % 13.0 Monocytes % 12.8 Eosinophils % 6.3 Basophils % 0.6 Neutrophils # 4.3 Lymphocytes # 0.8 Monocytes # 0.8 Eosinophils # 0.4 Basophils # 0.0 Sodium 138 Potassium 3.6 Chloride 111 H Carbon Dioxide 19 L BUN 12 Creatinine 0.55 L Est GFR ( Amer) > 60 Est GFR (Non-Af Amer) > 60 BUN/Creatinine Ratio 22 Glucose 104 Calculated Osmolality 286 Calcium 7.9 L Phosphorus 1.9 L Magnesium 1.6 Total Bilirubin AST ALT Alkaline Phosphatase Serum Total Protein Albumin Globulin Albumin/Globulin Ratio Urine Color Dark Yellow Urine Clarity Clear Urine pH 6.0 Ur Specific [place] 1.019 Urine Protein 30 H Urine Glucose (UA) Normal Urine Ketones 15 H Urine Blood Negative Urine Nitrite Negative Urine Bilirubin Moderate H Urine Urobilinogen Normal Ur Leukocyte Esterase Negative Urine Microscopic RBC 5-15 H Urine Microscopic WBC 5-15 H Ur Squamous Epith Cells Many H Urine Bacteria None Seen Hyaline Casts Few Ur Culture Indicated? NO 05/19/18 05/19/18 17:43 17:43 WBC 5.5 RBC 2.83 L Hgb 8.3 L Hct 26.0 L MCV 91.9 MCH 29.3 MCHC 31.9 RDW 16.5 H Plt Count 327 MPV 8.7 L Immature Gran % 1.5 Seg Neutrophils % 64.1 Lymphocytes % 16.4 Monocytes % 15.3 Eosinophils % 2.2 Basophils % 0.5 Neutrophils # 3.5 Lymphocytes # 0.9 Monocytes # 0.8 Eosinophils # 0.1 Basophils # 0.0 Sodium 141 Potassium 3.3 L Chloride 113 H Carbon Dioxide 20 L BUN 12 Creatinine 0.60 Est GFR ( Amer) > 60 Est GFR (Non-Af Amer) > 60 BUN/Creatinine Ratio 20 Glucose 108 H Calculated Osmolality 292 Calcium 8.1 L Phosphorus Magnesium Total Bilirubin 0.4 AST 19 ALT 12 Alkaline Phosphatase 55 Serum Total Protein 5.1 L Albumin 2.8 L Globulin 2.3 L Albumin/Globulin Ratio 1.2 Urine Color Urine Clarity Urine pH Ur Specific [place] Urine Protein Urine Glucose (UA) Urine Ketones Urine Blood Urine Nitrite Urine Bilirubin Urine Urobilinogen Ur Leukocyte Esterase Urine Microscopic RBC Urine Microscopic WBC Ur Squamous Epith Cells Urine Bacteria Hyaline Casts Ur Culture Indicated? - Impressions ITS Impressions Chest/Abdomen X-ray 05/16/18 13:47 IMPRESSION: Findings compatible with small bowel obstruction. Continued follow-up recommended. Worsened left basilar opacity from prior CT chest 02/21/2018, compatible with small left pleural effusion and associated atelectasis or infiltrate. Other underlying pathology not excluded. There also appears to be a new small right pleural effusion. Grossly stable appearance to diffuse bony metastatic disease. D/ / 05/16/2018 14:33:35 Ronny Corey MD / bcarter Interpreting Provider: Ronny Corey MD - Patient Status Disposition: Home Health Service Condition: Undetermined Functional capacity at discharge: independent ambulation Overall status at discharge: patient is progressing back to baseline - Discharge Instructions Follow Up With: Zach Connelly MD [Partnered Physician] - 05/26/18 1:25 pm Maryan Chapin CNP [Primary Care Provider] - 05/26/18 10:00 am - Diet and Activity Activity: increase activity as tolerated Diet: advance to your usual diet
--- NOTE | 2018-05-20 10:20 | Physician Discharge Referral ---
Home Health/Hosp Referral Info Transfer to: Home Health - Diagnosis (1) Breast cancer metastasized to large intestine Priority: Primary Status: Acute (2) Ileus following gastrointestinal surgery Priority: Primary Status: Resolved (3) Malignancy Priority: Primary Status: Suspected (4) Hypertension Priority: Secondary Status: Acute (5) Hypothyroidism Priority: Secondary Status: Chronic - Respiratory Orders Smoking Cessation: Smoking cessation has been advised. For more information, call the [employer] Tobacco Quit Line at 8-604-BCDP-NOW. - Dressing/Wound Care Site: abdomen surgical incision Type of Dressing/Treatments w/Frequency: Daily Wound Care: Remove dressing . Shower/Wash with antibacterial soap. May leave incisions open to air or cover with a dry dressing for comfort - Diet/Nutrition Diet/Nutrition Orders: Regular - Activity Activity Orders: Up ad pedro, Ambulate - Services Needed Following services are medically necessary services: Home Health Aide, Physical Therapy - Transfer Medications Prescriptions: Ondansetron HCl [Zofran] 4 mg PO Q6HR PRN #20 tab PRN Reason: Nausea And Vomiting OxyCODONE/APAP 5/325 [Percocet 5/325 MG] 1 each PO Q6HR PRN 7 Days #28 tablet PRN Reason: Moderate Pain Docusate [Colace] 100 mg PO BID #30 capsule Home Medications: Calcium Carbonate/Vitamin D3 [Calcium 500 + Vit D Caplet] 1 tab PO DAILY [History] Cholecalciferol (D-3) [Vitamin D] 2,000 unit PO DAILY 05/13/18 [History] Cyanocobalamin (Vitamin B-12) [Vitamin B-12] 1,000 mcg PO DAILY 05/13/18 [ History] Ferrous Sulfate [Iron] 325 mg PO DAILY 05/13/18 [History] Glucosamn/Condroitn/C/Mn/[place] [[facility] Glucosamine Chondroitin Tb] 1 tab PO DAILY 05/13/18 [History] Glutamine [l-Glutamine] 500 mg PO DAILY 05/13/18 [History] Krill/Om-3/Dha/Epa/Phospho/Ast [Krill Oil 1,000 mg Softgel] 1 cap PO DAILY 05/13 [History] Losartan [Cozaar] 25 mg PO DAILY 05/13/18 [History] Thyroid (Amour) [[place]ason Thyroid] 30 mg PO DAILY 05/13/18 [History] Ubidecarenone/Vit E Acetate [Co Q-10 100 mg Softgel] 1 cap PO DAILY 05/13/18 [ History] cloNIDine HCl [CloNIDine HCl] 0.1 mg PO BID 05/13/18 [History] Docusate [Colace] 100 mg PO BID #30 capsule 05/20/18 [Rx] Ondansetron HCl [Zofran] 4 mg PO Q6HR PRN #20 tab 05/20/18 [Rx] OxyCODONE/APAP 5/325 [Percocet 5/325 MG] 1 each PO Q6HR PRN 7 Days #28 tablet [Rx] Allergies/Adverse Reactions: 3 Allergy/AdvReac Type Severity Reaction Status Date / Time Erythromycin Base Allergy Hives Verified 05/11/18 14:28 Iodinated Contrast- Oral and Allergy Swelling Verified 05/11/18 14:28 IV Dye of [Iodinated Contrast Media - Lip/Tongue/Throat IV Dye] Penicillins Allergy Hives Verified 05/11/18 14:28 egg AdvReac Rash Verified 05/13/18 13:19 gluten AdvReac Rash Verified 05/11/18 14:28 lactase [From Dairy Aid] AdvReac Diarrhea Verified 05/13/18 13:19 nut - unspecified AdvReac Hives Verified 05/13/18 13:19 Certification: Further, I certify that my clinical findings support that this patient is homebound (i.e. absences from home require considerable and taxing effort and are for medical reasons or gnosticist services or infrequently or short duration when for other reasons) because: Homebound Reason: Patient requires assistance of a person or device to safely leave home, Post-surgery restriction and or conditions limit ability to leave home Attestation: My signature below is to certify that this patient is under my care and that I, or nurse practitioner, or a physician's assistant professor of drama working with me, has a face-to -face encounter with this patient.
--- NOTE | 2018-05-20 18:09 | Electrocardiograph Report ---
[place] [id number] Test Date: 2018-05-18 Pat Name: Berkley Jha Department: 115 Room: [facility] Gender: F Framing Manager: : 1930 Requested By: Hema Gonzalez Order Number: [id number] Reading MD: Curtis Pinto Measurements Intervals [place] Rate: 116 P: 33 [place]: 100 QRS: 30 QRSD: 88 T: 3 QT: 317 QTc: 386 Interpretive Statements SINUS TACHYCARDIA WITH SHORT WA INTERVAL POSSIBLE LEFT ATRIAL ENLARGEMENT Electronically Signed On 05-20-2018 18:07:56 EDT by Curtis Pinto
== END 2018-05-20 12:35 | disposition home health service (06) | DRG 330 ==
LOC: SAMDAY 11:46 → 3ANU 17:41
PROVIDERS: ADMIT Surgery; ATTEND Surgery

== ENCOUNTER 2018-05-27 12:08 | Inpatient (IN) ==
[2018-05-27] MEDS ORDERED: Ondansetron 4 MG/2 ML VIAL IVP ONE (12:23)
[2018-05-27] MEDS ORDERED: 0.9 % Sodium Chloride 500 ML IVC ONE ×2 (12:24→14:28)
[2018-05-27 13:11] LABS: Hematocrit 31.6 % (35.3-44.9); Hemoglobin 10.3 g/dL (11.5-15.4); Mean Corpuscular HGB Conc 32.6 g/dL (31.6-35.5); Mean Corpuscular Hemoglobin 29.3 pg (28.0-33.3); Mean Platelet Volume 9.1 fL (9.4-12.4); Monocytes # 0.5 K/mcL (0.0-1.3); Platelet Count 403 K/mcL (140-400); Red Blood Count 3.51 M/mcL (3.82-4.97); Red Cell Distribution Width 17.1 % (11.5-14.5)
[2018-05-27 13:17] LABS: INR 1.3; Prothrombin Time 14.9 Seconds (9.4-12.1)
[2018-05-27 13:35] LABS: Troponin I < 0.03 ng/mL (< 0.04)
[2018-05-27 13:56] LABS: Alanine Aminotransferase 8 Units/L (7-52); Albumin 2.8 g/dL (3.5-5.7); Alkaline Phosphatase 96 Units/L (34-104); Aspartate Amino Transferase 15 Units/L (13-39); BUN/Creatinine Ratio 18 (6-26); Bilirubin,Direct 0.3 mg/dL (0.0-0.2); Bilirubin,Indirect 0.4 mg/dL (0.0-1.2); Bilirubin,Total 0.7 mg/dL (0.3-1.0); Blood Urea Nitrogen 40 mg/dL (8-23); Carbon Dioxide 21 mEq/L (23-29); Chloride 103 mEq/L (98-107); Globulin 2.9 g/dL (2.4-3.5); Glucose 126 mg/dL (70-105); Lipase < 3 Units/L (11-82); Lymphocytes # 0.3 K/mcL (0.6-4.6); Neutrophils # 12.4 K/mcL (1.6-8.9); Osmolality,Calculated 297 (280-300); Platelet Estimate Normal (Normal); Potassium 4.3 mEq/L (3.5-5.1); Sodium 138 mEq/L (136-145); Total Protein 5.7 g/dL (6.4-8.9); eGFR For Non-African Americans 21 (> 60)
[2018-05-27] MEDS ORDERED: *HR* OxyCODONE/APAP 5/325 TABLET PO ONE (14:20)
--- NOTE | 2018-05-27 16:14 | Emergency Department Note ---
Disposition Clinical Impression: Generalized weakness, KAM (acute kidney injury), Pleural effusion Abdominal pain Qualifiers: Abdominal location: generalized Qualified Code(s): R10.84 - Generalized abdominal pain Nausea and vomiting Qualifiers: Vomiting type: unspecified Vomiting Intractability: intractable Qualified Code( s): R11.2 - Nausea with vomiting, unspecified Ascites Qualifiers: Ascites type: other type Qualified Code(s): R18.8 - Other ascites Disposition: Admitted As Inpatient Condition: Fair General Adult HPI - General Chief complaint: ED General Medical Stated complaint: weak, fluid in lungs Time Seen by Provider: 05/27/18 12:10 Source: patient Mode of arrival: private vehicle Limitations: physical limitation Nursing Notes Reviewed: Yes Vital Signs Reviewed: Yes - History of Present Illness HPI Narrative: 87-year-old female presents to the ER with complaint of generalized weakness from her primary care provider's office. Patient was admitted 2 weeks ago at which point she had a colonic resection for breast metastasis. States she was in the hospital for week and was discharged home. States that she has been unable to keep down anything for the last week in duration. She saw her surgeon yesterday who took out her skin cecil and gave her Reglan. States she is continued to throw up. Reports no urine output today. She passed gas yesterday. Reports diffuse mild abdominal pain. She has felt shortness of breath starting last night. No other complaints. Pt Subjective Complaint: Weakness Onset (ago): week(s) Location: abdomen Improves with: nothing Worsens with: nothing Associated symptoms: Reports: cough, nausea/vomiting, shortness of breath. Denies: chest pain, fever/chills Treatments Prior to Arrival: none - Related Data Home Medications Medication Instructions Recorded Confirmed Losartan [Cozaar] 25 mg PO DAILY 05/13/18 05/27/18 Thyroid (Amour) [[place] Thyroid] 30 mg PO DAILY 05/13/18 05/27/18 cloNIDine HCl [CloNIDine HCl] 0.1 mg PO BID 05/13/18 05/27/18 Docusate [Colace] 100 mg PO BID PRN 05/27/18 05/27/18 Previous Rx's Medication Instructions Recorded Ondansetron HCl [Zofran] 4 mg PO Q6HR PRN #20 tab 05/20/18 OxyCODONE/APAP 5/325 [Percocet 1 each PO Q6HR PRN 7 Days #28 05/20/18 5/325 MG] tablet Allergies Allergy/AdvReac Type Severity Reaction Status Date / Time Erythromycin Base Allergy Hives Verified 05/27/18 16:38 Iodinated Contrast- Oral and Allergy Swelling Verified 05/27/18 16:38 IV Dye of [Iodinated Contrast Media - Lip/Tongue/Throat IV Dye] Penicillins Allergy Hives Verified 05/27/18 16:38 egg AdvReac Rash Verified 05/27/18 16:38 gluten AdvReac Rash Verified 05/27/18 16:38 lactase [From Dairy Aid] AdvReac Diarrhea Verified 05/27/18 16:38 nut - unspecified AdvReac Hives Verified 05/27/18 16:38 promethazine [From Phenergan] AdvReac See Verified 05/27/18 16:38 Comments All systems ED: reviewed and negative except as stated. Constitutional: Denies: fever Cardiovascular: Denies: chest pain Respiratory: Reports: dyspnea Gastrointestinal: Reports: abdominal pain, nausea, vomiting. Denies: diarrhea Genitourinary: Denies: dysuria, hematuria Past Medical History - Past Medical History Attestation: Yes The following information was validated with the patient. Source: patient Medical history: Reports: cancer, thyroid disease Surgical history: Reports: appendectomy, cholecystectomy, hysterectomy, other Psychiatric history: Reports: no psych history - Social History Smoking Status: Unknown if ever smoked Smokeless Tobacco Status: No Alcohol use: Reports: none Drug use: Reports: none Physical Exam - General Limitations: no limitations General appearance: alert, in no apparent distress - Head Head exam: atraumatic, normocephalic - Eye Eye exam: Present: normal appearance - ENT ENT exam: normal exam - Neck Neck exam: Present: normal inspection - Chest Chest inspection: Present: normal inspection, symmetric chest wall rise - Respiratory Respiratory exam: Present: normal lung sounds bilaterally - Cardiovascular Cardiovascular exam: Present: normal rhythm, tachycardia, normal heart sounds - Abdominal Exam Abdominal exam: Present: soft, tenderness (Diffuse mild tenderness. She is distended without rigidity or guarding. Surgical site appears clean and dry.) - Extremities Exam Extremities exam: Present: normal inspection, full ROM - Expanded Upper Extremity Exam Shoulder exam: Present: normal inspection, full ROM Arm exam: Present: normal inspection, full ROM Elbow exam: Present: normal inspection, full ROM Forearm/Wrist exam: Present: normal inspection, full ROM Hand exam: Present: normal inspection, full ROM - Expanded Lower Extremity Exam Hip/Pelvis exam: Present: normal inspection, full ROM Upper leg exam: Present: normal inspection, full ROM Knee exam: Present: normal inspection, full ROM Lower leg exam: Present: normal inspection, full ROM Ankle exam: Present: normal inspection, full ROM, swelling (2+ bilateral lower extremity pitting edema) Foot/toe exam: Present: normal inspection, full ROM - Neurological Exam Neurological exam: Present: alert, other (GCS 15. No focal deficits. 4/5 muscle strength in all extremities.) - Skin Skin exam: Present: warm, dry Course Course Narrative: Patient seen and examined. Vital signs reviewed. Plan for CT imaging, labs, urinalysis, gentle fluid rehydration. Likely admission for nausea vomiting and dehydration. - Reevaluation(s) Reevaluation #1: Labs demonstrate acute kidney injury likely prerenal from her nausea and vomiting. CT scan with diffuse ascites. Patient updated. Comfortable with plan of being admitted. Vital Signs O2 Sat by Pulse Oximetry 96 05/27/18 12:30 Pulse Rate 110 05/27/18 16:09 Respiratory Rate 12 05/27/18 16:09 Blood Pressure 130/64 05/27/18 16:09 O2 Sat by Pulse Oximetry 95 05/27/18 16:09 Oxygen Delivery Oxygen Delivery Room Air Medical Decision Making - [facility] Narrative Medical decision making narrative: 87-year-old female presenting with generalized weakness nausea and vomiting 2 weeks postoperative from colon resection. She is cachectic and frail here. Hemodynamically stable. She has a nonsurgical abdominal exam. Her CT does demonstrate diffuse ascites. Suggest secondary to her breast cancer metastasis. Labs demonstrate acute kidney injury likely from her nausea and vomiting. The patient was given 500 mL aliquots of normal saline given her age. The patient is admitted to the hospitalist service for further management of nausea vomiting abdominal pain ascites and generalized weakness. - Lab Data Lab results reviewed: Yes I reviewed the patient's lab results. Result diagrams: 05/27/18 12:54 05/27/18 12:54 Lab Results 05/27/18 05/27/18 05/27/18 Range/Units 12:54 12:54 12:54 WBC 13.2 H (4.3-11.1) K/mcL RBC 3.51 L (3.82-4.97) M/mcL Hgb 10.3 L (11.5-15.4) g/dL Hct 31.6 L (35.3-44.9) % MCV 90.0 (83.0-100.0) fL MCH 29.3 (28.0-33.3) pg MCHC 32.6 (31.6-35.5) g/dL RDW 17.1 H (11.5-14.5) % Plt Count 403 H (140-400) K/mcL MPV 9.1 L (9.4-12.4) fL Seg Neutrophils % 81.0 % Band Neutrophils % 13.0 H (0-4) % Lymphocytes % 2.0 % Monocytes % 4.0 % Neutrophils # 12.4 H (1.6-8.9) K/mcL Lymphocytes # 0.3 L (0.6-4.6) K/mcL Monocytes # 0.5 (0.0-1.3) K/mcL Platelet Estimate Normal (Normal) PT 14.9 H (9.4-12.1) Seconds INR 1.3 Sodium 138 (136-145) mEq/L Potassium 4.3 (3.5-5.1) mEq/L Chloride 103 (98-107) mEq/L Carbon Dioxide 21 L (23-29) mEq/L BUN 40 H (8-23) mg/dL Creatinine 2.21 H (0.60-1.20) mg/dL Est GFR ( Amer) 25 L (> 60) Est GFR (Non-Af Amer) 21 L (> 60) BUN/Creatinine Ratio 18 (6-26) Glucose 126 H (70-105) mg/dL Calculated Osmolality 297 (280-300) Lactic Acid (0.5-2.2) mmol/L Calcium 8.0 L (8.6-10.3) mg/dL Total Bilirubin 0.7 (0.3-1.0) mg/dL Direct Bilirubin 0.3 H (0.0-0.2) mg/dL Indirect Bilirubin 0.4 (0.0-1.2) mg/dL AST 15 (13-39) Units/L ALT 8 (7-52) Units/L Alkaline Phosphatase 96 (34-104) Units/L Troponin I < 0.03 (< 0.04) ng/mL B-Natriuretic Peptide (Less than 100) pg/mL Serum Total Protein 5.7 L (6.4-8.9) g/dL Albumin 2.8 L (3.5-5.7) g/dL Globulin 2.9 (2.4-3.5) g/dL Albumin/Globulin Ratio 1.0 L (1.1-2.2) Lipase < 3 L (11-82) Units/L 05/27/18 05/27/18 Range/Units 12:54 12:54 WBC (4.3-11.1) K/mcL RBC (3.82-4.97) M/mcL Hgb (11.5-15.4) g/dL Hct (35.3-44.9) % MCV (83.0-100.0) fL MCH (28.0-33.3) pg MCHC (31.6-35.5) g/dL RDW (11.5-14.5) % Plt Count (140-400) K/mcL MPV (9.4-12.4) fL Seg Neutrophils % % Band Neutrophils % (0-4) % Lymphocytes % % Monocytes % % Neutrophils # (1.6-8.9) K/mcL Lymphocytes # (0.6-4.6) K/mcL Monocytes # (0.0-1.3) K/mcL Platelet Estimate (Normal) PT (9.4-12.1) Seconds INR Sodium (136-145) mEq/L Potassium (3.5-5.1) mEq/L Chloride (98-107) mEq/L Carbon Dioxide (23-29) mEq/L BUN (8-23) mg/dL Creatinine (0.60-1.20) mg/dL Est GFR ( Amer) (> 60) Est GFR (Non-Af Amer) (> 60) BUN/Creatinine Ratio (6-26) Glucose (70-105) mg/dL Calculated Osmolality (280-300) Lactic Acid 1.3 (0.5-2.2) mmol/L Calcium (8.6-10.3) mg/dL Total Bilirubin (0.3-1.0) mg/dL Direct Bilirubin (0.0-0.2) mg/dL Indirect Bilirubin (0.0-1.2) mg/dL AST (13-39) Units/L ALT (7-52) Units/L Alkaline Phosphatase (34-104) Units/L Troponin I (< 0.04) ng/mL B-Natriuretic Peptide 110 H (Less than 100) pg/mL Serum Total Protein (6.4-8.9) g/dL Albumin (3.5-5.7) g/dL Globulin (2.4-3.5) g/dL Albumin/Globulin Ratio (1.1-2.2) Lipase (11-82) Units/L - Radiology Data Radiology results reviewed: Yes I reviewed the patient's radiology results. Abdomen/Pelvis CT 05/27/18 12:24 IMPRESSION: 1. Postsurgical changes suggestive of recent bowel small bowel resection. 2. Moderate to large ascites throughout abdomen and pelvis is new compared to prior. 3. Large left pleural effusion. 4. Diminutive size of the liver which could suggest chronic hepatocellular disease. Clinical correlation recommended. 5. Body wall edema. 6. Numerous sclerotic foci are seen throughout the osseous structures suggestive of diffuse osseous metastases. Clinical correlation recommended. D/ / Sherman Kim / Sherman Kim Interpreting Provider: Sherman Kim Chest X-Ray 05/27/18 12:27 IMPRESSION: Small left effusion with adjacent airspace opacity, mildly improved from previous examination. Innumerable sclerotic lesions throughout the visualized skeleton. D/ / Javon Westfall MD / Javon Westfall MD Interpreting Provider: Javon Westfall MD - EKG Data EKG #1 EKG attestation: Yes I reviewed and interpreted this EKG. EKG results narrative: EKG demonstrates sinus tachycardia with a rate of 112. Normal axis. Normal intervals. Normal R-wave progression. No gross ST elevations or depressions. No acute ischemic findings. No significant changes from previous EKG dated . S.B.A.R. - S.B.A.R. Situation: Demographics, MOA Background: Presenting Complaint, Relevant PMH, Meds, & Allergies Assessment: Course and respsone to treatment, Exam Concerns, Patient/Family Expectation, Pertinant Lab Results Recommendation: Barrier(s) to disposition, Recommendation based on pending studies, treatments, or consults Chano Report Given to: Mauryist Chano Coyle Time: 16:21 Attestation Statement - Attestation Attestation: I examined this patient and my medical decision-making was reviewed with the Resident Physician, Dr. Dukes. I agree with the documented findings, disposition and treatment plan as described except to the extent set forth below. Patient is an 87-year-old elderly white female who presents the emergency department today sent from her primary care physician's office with concerns for being severely dehydrated. Patient was admitted to the hospital 2 weeks ago for a colon resection related to metastatic breast cancer. Patient's in the hospital for approximately 7 days and discharged home. Since that time patient's had decreased by mouth intake, nausea and vomiting difficulty tolerating by mouth. Patient has been seen by her primary care physician as well as her surgeon yesterday who took out her sutures. Patient states last night she began feeling short of breath and with her complaints of generalized weakness and clinically. Dehydrated her family physician who reevaluated her this morning sent her here to the emergency room. Patient denies any fevers or chills, no urinary symptoms or flank pain, complains of feeling bloated are quite full in her belly and uncomfortable as well as shortness of breath although no signs of respiratory distress or hypoxia. Patient's daughters at bedside and was concerned about pneumonia as she recently was on antibiotics for that. I agree with patient's physical exam findings as documented. Patient arrives tachycardic but with a stable blood pressure. EKG shows sinus tachycardia without acute ischemia. Patient underwent full lab evaluation urinalysis and CT imaging of the abdomen and pelvis as well as chest x-ray. Patient with acute on chronic renal insufficiency that has worsened today does appear clinically dehydrated but has excessive fluid with a large amount of ascites on her abdominal CT scan and a left pleural effusion. Patient will be admitted for further evaluation and management case was discussed with the hospitalist service.
[2018-05-27] MEDS ORDERED: Acetaminophen 325 MG TABLET PO PRN (16:18)
[2018-05-27] MEDS ORDERED: Naloxone 0.4 MG/ML INJ IVP PRN (16:18)
--- NOTE | 2018-05-27 16:53 | Internal Med History&Physical ---
Date of Encounter: 05/27/18 Time of Encounter: 16:30 Internal Medicine - H&P: HPI Chief complaint: Persistent nausea, poor appetite, vomiting Admitted From: Emergency Dept Plans for Post Hospital Care: Transfer Nursing Home Facility History of present illness: Ms. Jha is a 87 year old female patient with a history of metastatic breast cancer with metastases to the colon and abdomen who underwent partial right colectomy on 05/13 and was discharged from the hospital on 05/20 presented to the ER from her doctor's office with complaints of persistent nausea along with vomiting. Patient has had persistent nausea as even since her discharge from the hospital. She was receiving antiemetics here which was controlled her symptoms somewhat. She reports that she has not been taking any medications at home. Denies any fevers or chills. No hematemesis or melena. She reports that her last bowel movement was on Saturday. She also complains of abdominal distention and tightness that I am putting her breathing. No chest pain or palpitations. She also has pedal edema. Past Med Surg Social Fam HX - Past Medical History Attestation: Yes The following information was validated with the patient. Source: patient, old records reviewed Medical history: cancer, thyroid disease Psychiatric history: no psych history - Past Surgical History Surgical History: appendectomy, cholecystectomy, hysterectomy, other (Partial colectomy for small bowel obstruction and metastatic cancer to the colon) Additional surgical history: Accoustic Neuroma, tonsilectomy - Social History Smoking Status: Unknown if ever smoked Smokeless Tobacco Status: No Alcohol use: none Drug use: none - Family History Mother Living Status: Hx Family Cardiac Disorders: Yes (CHF) Internal Medicine - H&P: Meds Losartan [Cozaar] 25 mg PO DAILY 05/13/18 [History] Thyroid (Amour) [[place] Thyroid] 30 mg PO DAILY 05/13/18 [History] cloNIDine HCl [CloNIDine HCl] 0.1 mg PO BID 05/13/18 [History] Ondansetron HCl [Zofran] 4 mg PO Q6HR PRN #20 tab 05/20/18 [Rx] OxyCODONE/APAP 5/325 [Percocet 5/325 MG] 1 each PO Q6HR PRN 7 Days #28 tablet [Rx] Docusate [Colace] 100 mg PO BID PRN 05/27/18 [History] 3 Allergy/AdvReac Type Severity Reaction Status Date / Time Erythromycin Base Allergy Hives Verified 05/27/18 16:38 Iodinated Contrast- Oral and Allergy Swelling Verified 05/27/18 16:38 IV Dye of [Iodinated Contrast Media - Lip/Tongue/Throat IV Dye] Penicillins Allergy Hives Verified 05/27/18 16:38 egg AdvReac Rash Verified 05/27/18 16:38 gluten AdvReac Rash Verified 05/27/18 16:38 lactase [From Dairy Aid] AdvReac Diarrhea Verified 05/27/18 16:38 nut - unspecified AdvReac Hives Verified 05/27/18 16:38 promethazine [From Phenergan] AdvReac See Verified 05/27/18 16:38 Comments All Systems PM: A 10-system review of systems was performed and is negative for pertinent findings except as documented above in the HPI. - Constitutional Constitutional: anorexia, malaise, no chills, no fever(s), no night sweats - EENT Eyes: no change in vision, no discharge, no pain, no photophobia Ears: no ear discharge, no ear pain, no tinnitus Nose, mouth and throat: no dysphagia, no nasal discharge, no neck pain, no sore throat - Cardiovascular Cardiovascular ROS IM: no chest pain, no diaphoresis, no dyspnea, no lightheadedness, no palpitations, no syncope - Respiratory Respiratory: no cough, no dyspnea, no wheezing, no excessive phlegm production - Gastrointestinal Gastrointestinal: no abdominal pain, no diarrhea, no hematemesis, no hematochezia, no melena, no nausea, no vomiting Additional comments: Abdominal distention - Genitourinary Genitourinary: no change in urinary stream, no dysuria, no flank pain, no hematuria - Musculoskeletal Musculoskeletal ROS IM: no numbness, no tingling - Integumentary Integumentary IM: no rash, no unusual bruising - Neurological Neurological ROS: no confusion, no convulsions, no focal weakness, no numbness, no tingling, no tremor(s) - Endocrine Endocrine IM: polydipsia - Hematologic/Lymphatic Hematologic/Lymphatic: no easy bruising - Constitutional Vitals: Pulse Resp BP Pulse Ox 110 12 130/64 95 05/27/18 16:09 05/27/18 16:09 05/27/18 16:09 05/27/18 16:09 General appearance: Present: cooperative, mild distress, A&O X 3, underweight, answers questions appropriately Exam: General: Patient is alert, no acute distress, oriented x 3 Head: atraumatic, normocephalic, mucous membranes are dry Eye: normal appearance, PERRL, no scleral icterus, no conjunctival injection Neck: normal inspection, trachea midline, full ROM, no carotid bruits Chest: normal inspection, symmetric chest rise Respiratory: Good respiratory effort. Normal breath sounds. No wheezing or crackles. Cardiovascular: Regular rate and rhythm. s1 and s2 normal No clicks, rubs, gallops, or murmurs. No pedal edema Abdomen: Abdomen is soft, generalized tenderness, distended. Bowel sounds are present Musculoskeletal: Spontaneously moving all extremities Skin: warm, dry, intact. Neuro: Alert oriented x 3 normal cranial nerves, no focal deficits Psych: Patient's affect is normal Internal Med - H&P Results - Labs CBC & Chem 7: 05/27/18 12:54 05/27/18 12:54 - Impressions Impressions Abdomen/Pelvis CT 05/27/18 12:24 IMPRESSION: 1. Postsurgical changes suggestive of recent bowel small bowel resection. 2. Moderate to large ascites throughout abdomen and pelvis is new compared to prior. 3. Large left pleural effusion. 4. Diminutive size of the liver which could suggest chronic hepatocellular disease. Clinical correlation recommended. 5. Body wall edema. 6. Numerous sclerotic foci are seen throughout the osseous structures suggestive of diffuse osseous metastases. Clinical correlation recommended. D/ / Sherman Kim / Sherman Kim Interpreting Provider: Sherman Kim Chest X-Ray 05/27/18 12:27 IMPRESSION: Small left effusion with adjacent airspace opacity, mildly improved from previous examination. Innumerable sclerotic lesions throughout the visualized skeleton. D/ / Javon Westfall MD / Javon Westfall MD Interpreting Provider: Javon Westfall MD - Assessment and plan (1) KAM (acute kidney injury) Current Visit: Yes Status: Acute Assessment and plan: Patient has acute kidney injury due to nausea and vomiting and dehydration. Creatinine is 2.21. Will gently hydrate patient. Given her hypoalbuminemia, she may eventually require albumin infusion with Lasix to encourage diuresis. High risk for complications. (2) Nausea and vomiting Current Visit: Yes Status: Acute Assessment and plan: Patient with intractable nausea along with vomiting. We will treat symptomatically. Place patient on Zofran and Phenergan. Qualifiers: Vomiting type: cyclical vomiting Vomiting Intractability: intractable Qualified Code(s): G43.A1 - Cyclical vomiting, intractable (3) Severe protein-calorie malnutrition Current Visit: Yes Status: Acute Assessment and plan: Due to poor appetite and persistent nausea and vomiting. We will treat nausea with antiemetics. Surgery consult. When patient is able to eat, we will encourage protein rich diet. Nutrition consult. (4) Ascites Current Visit: Yes Status: Acute Assessment and plan: Patient has moderate to large ascites per CT. However given recent surgery, may not be an appropriate candidate for paracentesis. Will discuss with surgery further. Qualifiers: Ascites type: malignant Qualified Code(s): R18.0 - Malignant ascites (5) Bilateral edema of lower extremity Current Visit: Yes Status: Acute Assessment and plan: Patient has generalized anasarca especially in her abdominal wall along with ascites and bilateral lower extremity edema. However given her acute kidney injury, we will hold off on diuretics for now. We will gently hydrate. Plan on starting initiating diuretics possibly tomorrow based on her response. (6) Breast cancer metastasized to large intestine Current Visit: Yes Status: Acute Assessment and plan: Follow-up outpatient with oncology and surgery for further management. 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 (8) Hypertension Current Visit: Yes Status: Chronic Assessment and plan: Will resume home medications. Monitor blood pressure closely. Qualifiers: Hypertension type: essential hypertension Qualified Code(s): I10 - Essential (primary) hypertension (9) Pleural effusion Current Visit: Yes Status: Acute Assessment and plan: Patient has moderate to large left-sided pleural effusion with compressive atelectasis. We will consider thoracentesis for symptomatic relief. - Time Spent With Patient Total time spent is greater than 50% in coordination of care (as documented) at patient's floor/unit and/or counseling patient:
[2018-05-27] MEDS ORDERED: Metoclopramide 10 MG/2 ML VIAL IVP PRN (17:04)
[2018-05-27] MEDS: *HR* Heparin 5,000 UNIT/ML VIAL SQ SCH (18:30)
[2018-05-27] MEDS: Ringers Solution, Lactated 1,000 ML IVC SCH (18:32)
[2018-05-27] MEDS: cloNIDine HCl 0.1 MG TABLET PO SCH (21:45)
[2018-05-27 21:51] LABS: Bilirubin,Urine Moderate (Negative); Blood,Urine Negative (Negative); Clarity,Urine Turbid (Clear); Color,Urine Orange (Yellow); Glucose,Urine (UA) Normal (Normal); Ketones,Urine Trace mg/dL (Negative); Leukocyte Esterase,Urine Small (Negative); Nitrite,Urine Negative (Negative); Protein,Urine 100 mg/dL (Neg-Trace); Specific Gravity,Urine 1.025 (1.010-1.025); Urobilinogen,Urine Normal (Normal)
[2018-05-27] MEDS: Ondansetron ODT 4 MG TAB.RAPDIS SL PRN (21:51)
[2018-05-27 21:52] LABS: WBC,Urine TNTC per hpf (0-3)
[2018-05-27 22:01] LABS: Bacteria,Urine Many per hpf (None-Few)
[2018-05-27 22:02] LABS: Squamous Epithelial Cell,Urine Moderate per lpf (None-Few)
[2018-05-28] MEDS: OXYCODONE Oral CONC 10 MG/0.5 ML ORAL.SYG SL PRN ×4 (01:41→14:38)
[2018-05-28] MEDS: Ringers Solution, Lactated 1,000 ML IVC SCH (04:33)
[2018-05-28 05:10] LABS: Basophils % 0.1 %; Hematocrit 27.6 % (35.3-44.9); Hemoglobin 9.1 g/dL (11.5-15.4); Immature Granulocytes % 0.8 % (0-4); Lymphocytes # 0.4 K/mcL (0.6-4.6); Lymphocytes % 3.7 %; Mean Corpuscular Hemoglobin 29.7 pg (28.0-33.3); Mean Corpuscular Volume 90.2 fL (83.0-100.0); Mean Platelet Volume 9.7 fL (9.4-12.4); Monocytes # 0.6 K/mcL (0.0-1.3); Monocytes % 5.2 %; Neutrophils # 9.5 K/mcL (1.6-8.9); Platelet Count 375 K/mcL (140-400); Red Blood Count 3.06 M/mcL (3.82-4.97); Red Cell Distribution Width 17.2 % (11.5-14.5); Segmented Neutrophils % 90.2 %
[2018-05-28 05:28] LABS: Lactate Dehydrogenase 131 Units/L (140-271); Total Protein 4.9 g/dL (6.4-8.9)
[2018-05-28 05:30] LABS: Anisocytosis 1+ (Not Present)
[2018-05-28 05:31] LABS: Calcium 7.4 mg/dL (8.6-10.3); Macrocytosis Present (Not Present); Microcytosis Present (Not Present); Platelet Estimate Normal (Normal); Polychromasia 1+ (Not Present); Potassium 4.5 mEq/L (3.5-5.1)
[2018-05-28] MEDS: *HR* Heparin 5,000 UNIT/ML VIAL SQ SCH (05:48)
--- NOTE | 2018-05-28 07:38 | Electrocardiograph Report ---
[facility] Test Date: 2018-05-27 Pat Name: Berkley Jha Department: EXAMC6 Room: [facility] Gender: F Physicist [place]: : 1930 Requested By: Albert Dukes Order Number: [id number] Reading MD: Aidan Tracey Measurements Intervals [place] Rate: 112 P: 36 [place]: 104 QRS: 45 QRSD: 84 T: 45 QT: 315 QTc: 430 Interpretive Statements Sinus tachycardia Electronically Signed On 05-28-2018 7:36:59 EDT by Aidan Tracey
[2018-05-28] MEDS ORDERED: cefTRIAXone 1,000 MG in 0.9 % Sodium Chloride Mini Bag 100 ML IVPB SCH (09:00)
[2018-05-28] MEDS ORDERED: Thyroid (Amour) 30 MG TABLET PO SCH (09:00)
[2018-05-28] MEDS: cloNIDine HCl 0.1 MG TABLET PO SCH ×2 (09:11→11:25)
[2018-05-28] MEDS: Thyroid (Amour) 30 MG TABLET PO SCH ×2 (09:11→11:25)
--- NOTE | 2018-05-28 11:02 | Nephrology Consult Note ---
Date of Encounter: 05/28/18 Time of Encounter: 10:58 Assessment and Plan (1) KAM (acute kidney injury) Current Visit: Yes Status: Acute Patient has acute kidney injury with no history of chronic kidney disease. Patient's acute kidney injury appears to be prerenal azotemia/more likely acute tubular necrosis secondary to volume depletion from nausea vomiting and hypotension. I recommend adjusting medications for renal function. I recommend avoiding nephrotoxins and agree with holding her blood pressure medications. I agree with intravenous hydration. Please accurately record her ins and outs. Her workup is ordered and includes a renal ultrasound. At this time she does not need renal replacement therapy, or biopsy. Thank you for inviting me to participate in the care of your patient. (2) Anemia Current Visit: Yes Status: Acute Anemia workup as ordered. Transfuse as needed. 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 Qualifiers: Vomiting type: cyclical vomiting Vomiting Intractability: intractable Qualified Code(s): G43.A1 - Cyclical vomiting, intractable (5) Severe protein-calorie malnutrition Current Visit: Yes Status: Acute Per primary team. (6) Hypertension Current Visit: Yes Status: Chronic Recommend holding antihypertensive medications until blood pressure improves. Agree with hydration. Qualifiers: Hypertension type: essential hypertension Qualified Code(s): I10 - Essential (primary) hypertension History of Present Illness - Reason for Consult Consult date: 05/28/18 Acute Kidney Injury - Chief Complaint KAM - History of Present Illness Ms. Jha is an 87 -year-old woman with a history of breast cancer who presents with nausea and vomiting. Patient was recently discharged and her appetite never went back to baseline. She began exercising nausea vomiting and was brought back to the hospital. Initially her blood pressure was normal however it subsequently decreased to the hypotensive range. At the time my evaluation she reports that she is feeling a little bit better but still has abdominal pain and nausea. She has a family member at the bedside who also assists with history. Other parts of the history were obtained from review of the medical records. Past Med Surg Social Fam HX - Past Medical History Medical history: cancer, thyroid disease Psychiatric history: no psych history - Past Surgical History Surgical History: appendectomy, cholecystectomy, hysterectomy, other Additional surgical history: Accoustic Neuroma, tonsilectomy - Social History Smoking Status: Never smoker Smokeless Tobacco Status: No Alcohol use: none Drug use: none - Family History Mother Living Status: Hx Family Cardiac Disorders: Yes (CHF) Medications and Allergies Losartan [Cozaar] 25 mg PO DAILY 05/13/18 [History] Thyroid ([place]our) [[place] Thyroid] 30 mg PO DAILY 05/13/18 [History] cloNIDine HCl [CloNIDine HCl] 0.1 mg PO BID 05/13/18 [History] Ondansetron HCl [Zofran] 4 mg PO Q6HR PRN #20 tab 05/20/18 [Rx] OxyCODONE/APAP 5/325 [Percocet 5/325 MG] 1 each PO Q6HR PRN 7 Days #28 tablet [Rx] Docusate [Colace] 100 mg PO BID PRN 05/27/18 [History] 3 Allergy/AdvReac Type Severity Reaction Status Date / Time Erythromycin Base Allergy Hives Verified 05/27/18 16:38 Iodinated Contrast- Oral and Allergy Swelling Verified 05/27/18 16:38 IV Dye of [Iodinated Contrast Media - Lip/Tongue/Throat IV Dye] Penicillins Allergy Hives Verified 05/27/18 16:38 egg AdvReac Rash Verified 05/27/18 16:38 gluten AdvReac Rash Verified 05/27/18 16:38 lactase [From Dairy Aid] AdvReac Diarrhea Verified 05/27/18 16:38 nut - unspecified AdvReac Hives Verified 05/27/18 16:38 promethazine [From Phenergan] AdvReac See Verified 05/27/18 16:38 Comments Review of Systems All Systems: reviewed and no additional remarkable complaints except as stated ( As per history of present illness) Exam - Vital Signs Vital signs: Initial Vital Signs Pulse Ox 96 05/27/18 12:30 Vital Signs - Last 8 Hours Temp Pulse Resp BP Pulse Ox 05/28/18 10:32 97.6 F 104 16 109/68 94 05/28/18 06:59 97.6 F 104 16 118/70 96 05/28/18 05:00 97.8 F 101 16 94/50 95 Intake and Output 05/27/18 05/28/18 05/28/18 23:59 07:59 15:59 Intake Total 0 / 0 1000 / 1000 Balance 0 / 0 1000 / 1000 Intake: IV Fluids 1000 / 1000 Lactated Ringers 1,000 ML @ 100 1000 / 1000 mls/hr IVC .Q10H VINOD Rx#: [id number] Oral 0 / 0 0 / 0 Other: # Voids 1 1 Weight 57.776 kg Blood Glucose* 98 - General Appearance General appearance: well-developed, well-nourished EENT: ATNC Neck: supple Respiratory: course breath sounds Cardiology: edema Additional Comments: Tachycardic. Gastrointestinal: tenderness Integumentary: warm and dry Neurologic: alert and oriented x3 Musculoskeletal: no cyanosis Psychiatric: mood/affect appropriate Results - Lab Results 05/28/18 04:15 05/28/18 04:15 Most recent lab results Calcium 7.4 mg/dL (8.6-10.3) L 05/28/18 04:15 Consult Discharge Plan - Plan Referrals: Maryan Chapin, ASSET PROTECTION OFFICER [Primary Care Provider] -
[2018-05-28] MEDS: Ondansetron ODT 4 MG TAB.RAPDIS SL PRN (11:21)
--- NOTE | 2018-05-28 11:23 | General Surgery Consult Note ---
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 (2) KAM (acute kidney injury) Status: Acute Nephrology consulted for recommendations IV fluids- 100ml/hour per primary team Avoid nephrotoxic medications Strict I&Os monitor labs (3) DVT prophylaxis Status: Acute Heparin 5,000 units SQ twice daily for DVT prophylaxis (4) Ileus following gastrointestinal surgery Status: Acute May continue clear liquids as long as patient tolerating IV fluids per primary team Continue antiemetics Continue reglan Serial abdominal exams PPI therapy daily IS every 1 hour while awake Ambulate TID with assistance- may need PT/OT for mobilization History of Present Illness Consult date: 05/28/18 Reason for consult: other (Nausea and Vomiting) Requesting physician: Jaxson Drake History of present illness: Ms. Jha is an 87 year old female who is s/p Exploratory celiotomy with right colectomy on 05/13/[address] Connelly. 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 Patient was seen by Dr. Connelly on 05/26/18 for complaints of nausea/vomiting and poor appetite. She was given zofran and reglan and orders for labs. She was scheduled to follow-up with her PCP for complaints of swelling of lower extremities. She was seen by her PCP yesterday and had no improvement in her symptoms. She reported fatigue and continued loss appetite. She reported continued nausea/vomiting/dry heaves. She is not passing flatus or having bowel movements for the past couple of days. She reports feeling short of breath. She complaints of chest discomfort and the feeling of not being able to take her next breath. She denies any fevers or chills. She states that she has had minimal urination. She was sent to the ED per her PCP and subsequently admitted for nausea/vomiting/dehydration/acute kidney injury. We have been asked to see and evaluate her for treatment of her ileus. Past Med Surg Social Fam HX - Past Medical History Source: patient, old records reviewed Medical history: cancer (metastatic breast cancer to colon, SCC), hypertension, thyroid disease, other (cataracts) Psychiatric history: no psych history - Past Surgical History Surgical History: appendectomy, cataract, cholecystectomy, colectomy (Exploratory celiotomy, right colectomy on 05/13/18), hysterectomy, HERI/BSO, other (surgery for acoustic neuroma) Additional surgical history: Acoustic Neuroma, tonsilectomy - Social History Smoking Status: Never smoker Smokeless Tobacco Status: No Alcohol use: none Drug use: none Current living situation: Home - Independent Activity Level: Independent ambulation - Family History Mother Living Status: Hx Family Cardiac Disorders: Yes (CHF) Medications and Allergies Losartan [Cozaar] 25 mg PO DAILY 05/13/18 [History] Thyroid (Amour) [[place] Thyroid] 30 mg PO DAILY 05/13/18 [History] cloNIDine HCl [CloNIDine HCl] 0.1 mg PO BID 05/13/18 [History] Ondansetron HCl [Zofran] 4 mg PO Q6HR PRN #20 tab 05/20/18 [Rx] OxyCODONE/APAP 5/325 [Percocet 5/325 MG] 1 each PO Q6HR PRN 7 Days #28 tablet 05/20/18 [Rx] Docusate [Colace] 100 mg PO BID PRN 05/27/18 [History] Allergy/AdvReac Type Severity Reaction Status Date / Time Erythromycin Base Allergy Hives Verified 05/27/18 16:38 Iodinated Contrast- Oral and Allergy Swelling Verified 05/27/18 16:38 IV Dye of [Iodinated Contrast Media - Lip/Tongue/Throat IV Dye] Penicillins Allergy Hives Verified 05/27/18 16:38 egg AdvReac Rash Verified 05/27/18 16:38 gluten AdvReac Rash Verified 05/27/18 16:38 lactase [From Dairy Aid] AdvReac Diarrhea Verified 05/27/18 16:38 nut - unspecified AdvReac Hives Verified 05/27/18 16:38 promethazine [From Phenergan] AdvReac See Verified 05/27/18 16:38 Comments Review of Systems All systems PM: reviewed and no additional remarkable complaints except as stated (in the HPI) All systems PM: The remainder of the systems were reviewed and are negative General Surgery Exam Initial Vital Signs Pulse Ox 96 05/27/18 12:30 - General physical appearance well developed, no distress - Eyes normal ocular movement - ENT normal mucosa, atraumatic, normocephalic - Neck trachea midline - Respiratory normal respiratory effort, clear to auscultation, other (diminished bibasilar bases) - Cardiovascular Cardiovascular exam: Present: tachycardia (HR low 100's) - Abdomen Abdomen general surgery: Present: bowel sounds present (hypoactive), soft, non tender, distended - Incision Incision: Present: clean and dry, intact - Integumentary Integumentary general surgery: Present: warm and dry - Neurologic Present: CN 2-12 grossly intact - Psychiatric Psychiatric general surgery: Present: appropriate, oriented to person, oriented to place, oriented to time, speech is normal, memory intact Exam Initial Vital Signs Pulse Ox 96 05/27/18 12:30 Results - Labs 05/28/18 04:15 05/28/18 04:15 Abnormal lab results RBC 3.06 M/mcL (3.82-4.97) L 05/28/18 04:15 Hgb 9.1 g/dL (11.5-15.4) L 05/28/18 04:15 Hct 27.6 % (35.3-44.9) L 05/28/18 04:15 RDW 17.2 % (11.5-14.5) H 05/28/18 04:15 Band Neutrophils % 13.0 % (0-4) H 05/27/18 12:54 Neutrophils # 9.5 K/mcL (1.6-8.9) H 05/28/18 04:15 Lymphocytes # 0.4 K/mcL (0.6-4.6) L 05/28/18 04:15 Polychromasia 1+ (Not Present) A 05/28/18 04:15 Anisocytosis 1+ (Not Present) A 05/28/18 04:15 Microcytosis Present (Not Present) A 05/28/18 04:15 Macrocytosis Present (Not Present) A 05/28/18 04:15 PT 14.9 Seconds (9.4-12.1) H 05/27/18 12:54 Carbon Dioxide 21 mEq/L (23-29) L 05/28/18 04:15 BUN 48 mg/dL (8-23) H 05/28/18 04:15 Creatinine 2.48 mg/dL (0.60-1.20) H 05/28/18 04:15 Est GFR ( Amer) 22 (> 60) L 05/28/18 04:15 Est GFR (Non-Af Amer) 18 (> 60) L 05/28/18 04:15 Calculated Osmolality 301 (280-300) H 05/28/18 04:15 Calcium 7.4 mg/dL (8.6-10.3) L 05/28/18 04:15 Direct Bilirubin 0.3 mg/dL (0.0-0.2) H 05/27/18 12:54 Lactate Dehydrogenase 131 Units/L (140-271) L 05/28/18 04:15 B-Natriuretic Peptide 110 pg/mL (Less than 100) H 05/27/18 12:54 Serum Total Protein 4.9 g/dL (6.4-8.9) L 05/28/18 04:15 Albumin 2.8 g/dL (3.5-5.7) L 05/27/18 12:54 Albumin/Globulin Ratio 1.0 (1.1-2.2) L 05/27/18 12:54 Lipase < 3 Units/L (11-82) L 05/27/18 12:54 Urine Color [place] (Yellow) A 05/27/18 21:45 Urine Clarity Turbid (Clear) A 05/27/18 21:45 Urine Protein 100 mg/dL (Neg-Trace) H 05/27/18 21:45 Urine Ketones Trace mg/dL (Negative) H 05/27/18 21:45 Urine Bilirubin Moderate (Negative) H 05/27/18 21:45 Ur Leukocyte Esterase Small (Negative) H 05/27/18 21:45 Urine Microscopic WBC TNTC per hpf (0-3) H 05/27/18 21:45 Ur Squamous Epith Cells Moderate per lpf (None-Few) H 05/27/18 21:45 Urine Bacteria Many per hpf (None-Few) H 05/27/18 21:45 Ur Culture Indicated? YES (NO) A 05/27/18 21:45 Diabetes panel 05/28/18 Range/Units 04:15 Sodium 139 (136-145) mEq/L Potassium 4.5 (3.5-5.1) mEq/L Chloride 105 (98-107) mEq/L Carbon Dioxide 21 L (23-29) mEq/L BUN 48 H (8-23) mg/dL Creatinine 2.48 H (0.60-1.20) mg/dL Glucose 104 (70-105) mg/dL Calcium 7.4 L (8.6-10.3) mg/dL Calcium panel 05/28/18 Range/Units 04:15 Calcium 7.4 L (8.6-10.3) mg/dL Pituitary panel 05/28/18 Range/Units 04:15 Sodium 139 (136-145) mEq/L Potassium 4.5 (3.5-5.1) mEq/L Chloride 105 (98-107) mEq/L Carbon Dioxide 21 L (23-29) mEq/L BUN 48 H (8-23) mg/dL Creatinine 2.48 H (0.60-1.20) mg/dL Glucose 104 (70-105) mg/dL Calcium 7.4 L (8.6-10.3) mg/dL Adrenal panel 05/28/18 Range/Units 04:15 Sodium 139 (136-145) mEq/L Potassium 4.5 (3.5-5.1) mEq/L Chloride 105 (98-107) mEq/L Carbon Dioxide 21 L (23-29) mEq/L BUN 48 H (8-23) mg/dL Creatinine 2.48 H (0.60-1.20) mg/dL Glucose 104 (70-105) mg/dL Calcium 7.4 L (8.6-10.3) mg/dL All other labs normal. - Imaging Additional studies: Abdomen/Pelvis CT 05/27/18 12:24 IMPRESSION: 1. Postsurgical changes suggestive of recent bowel small bowel resection. 2. Moderate to large ascites throughout abdomen and pelvis is new compared to prior. 3. Large left pleural effusion. 4. Diminutive size of the liver which could suggest chronic hepatocellular disease. Clinical correlation recommended. 5. Body wall edema. 6. Numerous sclerotic foci are seen throughout the osseous structures suggestive of diffuse osseous metastases. Clinical correlation recommended. D/ / Sherman Kim / Sherman Kim Interpreting Provider: Sherman Kim Chest X-Ray 05/27/18 12:27 IMPRESSION: Small left effusion with adjacent airspace opacity, mildly improved from previous examination. Innumerable sclerotic lesions throughout the visualized skeleton. D/ / Javon Westfall MD / Javon Westfall MD Interpreting Provider: Javon Westfall MD Consult Discharge Plan - Plan Referrals: Maryan Chapin PRODUCT SAFETY CONSULTANT [Primary Care Provider] - - Attending Attestation For this encounter, I have reviewed the FIELD SALES TRAINER or PA documentation, treatment plan, and medical decision making; and I have had face to face time with this patient. 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 (2) DVT prophylaxis Status: Acute (3) KAM (acute kidney injury) Status: Acute (4) Ileus following gastrointestinal surgery Status: Acute Review of Systems All systems PM: The remainder of the systems were reviewed and are negative General Surgery Exam Initial Vital Signs Pulse Ox 96 05/27/18 12:30 Exam Initial Vital Signs Pulse Ox 96 05/27/18 12:30 Results - Labs 05/28/18 04:15 05/28/18 04:15 Abnormal lab results RBC 3.06 M/mcL (3.82-4.97) L 05/28/18 04:15 Hgb 9.1 g/dL (11.5-15.4) L 05/28/18 04:15 Hct 27.6 % (35.3-44.9) L 05/28/18 04:15 RDW 17.2 % (11.5-14.5) H 05/28/18 04:15 Band Neutrophils % 13.0 % (0-4) H 05/27/18 12:54 Neutrophils # 9.5 K/mcL (1.6-8.9) H 05/28/18 04:15 Lymphocytes # 0.4 K/mcL (0.6-4.6) L 05/28/18 04:15 Polychromasia 1+ (Not Present) A 05/28/18 04:15 Anisocytosis 1+ (Not Present) A 05/28/18 04:15 Microcytosis Present (Not Present) A 05/28/18 04:15 Macrocytosis Present (Not Present) A 05/28/18 04:15 PT 14.9 Seconds (9.4-12.1) H 05/27/18 12:54 Carbon Dioxide 21 mEq/L (23-29) L 05/28/18 04:15 BUN 48 mg/dL (8-23) H 05/28/18 04:15 Creatinine 2.48 mg/dL (0.60-1.20) H 05/28/18 04:15 Est GFR ( Amer) 22 (> 60) L 05/28/18 04:15 Est GFR (Non-Af Amer) 18 (> 60) L 05/28/18 04:15 POC Glucose 53 mg/dL (70-99) L 05/28/18 17:03 Calculated Osmolality 301 (280-300) H 05/28/18 04:15 Calcium 7.4 mg/dL (8.6-10.3) L 05/28/18 04:15 Direct Bilirubin 0.3 mg/dL (0.0-0.2) H 05/27/18 12:54 Lactate Dehydrogenase 131 Units/L (140-271) L 05/28/18 04:15 B-Natriuretic Peptide 110 pg/mL (Less than 100) H 05/27/18 12:54 Serum Total Protein 4.9 g/dL (6.4-8.9) L 05/28/18 04:15 Albumin 2.8 g/dL (3.5-5.7) L 05/27/18 12:54 Albumin/Globulin Ratio 1.0 (1.1-2.2) L 05/27/18 12:54 Lipase < 3 Units/L (11-82) L 05/27/18 12:54 Urine Color [place] (Yellow) A 05/27/18 21:45 Urine Clarity Turbid (Clear) A 05/27/18 21:45 Urine Protein 100 mg/dL (Neg-Trace) H 05/27/18 21:45 Urine Ketones Trace mg/dL (Negative) H 05/27/18 21:45 Urine Bilirubin Moderate (Negative) H 05/27/18 21:45 Ur Leukocyte Esterase Small (Negative) H 05/27/18 21:45 Urine Microscopic WBC TNTC per hpf (0-3) H 05/27/18 21:45 Ur Squamous Epith Cells Moderate per lpf (None-Few) H 05/27/18 21:45 Urine Bacteria Many per hpf (None-Few) H 05/27/18 21:45 Ur Culture Indicated? YES (NO) A 05/27/18 21:45 Pleural Appearance Cloudy (Clear) A 05/27/18 13:00 All other labs normal. - Attending Attestation I reviewed the above assessment and evaluation and agree with the above- mentioned plan.
--- NOTE | 2018-05-28 11:25 | Internal Med Progress Note ---
Hospitalist Progress Note - Encounter Date of Encounter: 05/28/18 Time of Encounter: 10:00 - Subjective Interval History: Patient reports a dry mouth and nausea. She did receive Zofran earlier. Also complains of right upper quadrant abdominal pain that severe. She does not want to use narcotic medications. Explained to her that with her renal function not being appropriate, we cannot really use NSAIDs. As such narcotic medications are appropriate for her to use to control her pain. Denies any shortness of breath at this time. Continues to have lower extremity edema. She has not had much urine output since admission yesterday. - Exam Vitals: Temp Pulse Resp BP Pulse Ox 97.6 F 104 16 109/68 94 05/28/18 10:32 05/28/18 10:32 05/28/18 10:32 05/28/18 10:32 05/28/18 10:32 Exam: General: Patient is alert, no acute distress, oriented x 3 ENT: Oral mucosa is dry Respiratory: Good respiratory effort. Normal breath sounds. No wheezing or crackles. Cardiovascular: Regular rate and rhythm. s1 and s2 normal No clicks, rubs, gallops, or murmurs. Bilateral pitting pedal edema up to the knee Abdomen: Abdomen is soft, distended with right upper quadrant tenderness . Bowel sounds are present Musculoskeletal: Spontaneously moving all extremities Skin: warm, dry, intact, pallor present. Neuro: Alert oriented x 3 normal cranial nerves, no focal deficits - Assessment and Plan (1) KAM (acute kidney injury) Current Visit: Yes Status: Acute Assessment and Plan: Renal function has worsened despite IV fluids. Possibly from hepatorenal syndrome with hypoalbuminemia. Nephrology consulted. We will follow recommendations. Continue to monitor urine output closely. High risk for complications. (2) Nausea and vomiting Current Visit: Yes Status: Acute Assessment and Plan: continue symptomatic treatment for nausea. Patient wishes to try Popsicle. Will place on clear liquid diet. (3) Severe protein-calorie malnutrition Current Visit: Yes Status: Acute Assessment and Plan: Nutrition consulted. Once patient tolerates oral diet, will place on nutrition supplements (4) Ascites Current Visit: Yes Status: Acute Assessment and Plan: Awaiting surgery input. Consider paracentesis. (5) Bilateral edema of lower extremity Current Visit: Yes Status: Acute Assessment and Plan: Due to hypoalbuminemia. Patient receiving IV fluids currently due to acute kidney injury. She may require albumin also. Will discuss with nephrology. 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 Given her worsening renal function, it may be appropriate to consult palliative care to discuss goals of care. If her renal function does not improve, she may end up requiring hemodialysis. Also given her continued nausea and vomiting with protein calorie malnutrition, she has very poor prognosis overall. (7) DVT prophylaxis Current Visit: Yes Status: Acute Assessment and Plan: On subcutaneous heparin for DVT prophylaxis given underlying malignancy. (8) Hypertension Current Visit: Yes Status: Chronic (9) Pleural effusion Current Visit: Yes Status: Acute Assessment and Plan: Consulted IR for paracentesis. Could be related to anasarca/malignancy. - Time Spent with Patient Total time spent is greater than 50% in coordination of care (as documented) at patient's floor/unit and/or counseling patient: Internal Medicine: Result - Labs CBC & Chem 7: 05/28/18 04:15 05/28/18 04:15 Labs: Short CBC 05/28/18 Range/Units 04:15 WBC 10.5 (4.3-11.1) K/mcL Hgb 9.1 L (11.5-15.4) g/dL Hct 27.6 L (35.3-44.9) % Plt Count 375 (140-400) K/mcL Neutrophils # 9.5 H (1.6-8.9) K/mcL BMP 05/28/18 04:15 Sodium 139 Potassium 4.5 Chloride 105 Carbon Dioxide 21 L BUN 48 H Creatinine 2.48 H Glucose 104 Calcium 7.4 L Urine 05/27/18 Range/Units 21:45 Urine Color [place] A (Yellow) Urine Clarity Turbid A (Clear) Urine pH 5.0 (5.0-8.0) pH Units Ur Specific [place] 1.025 (1.010-1.025) Urine Protein 100 H (Neg-Trace) mg/dL Urine Glucose (UA) Normal (Normal) mg/dL - ABG Interpretation ABG results: PT/INR, D-dimer PT 14.9 Seconds (9.4-12.1) H 05/27/18 12:54 Consult Discharge Plan - Plan Referrals: Easterday,Maryan L, LAUNDRY LABORER [Primary Care Provider] - (2) Nausea and vomiting Qualifiers: Qualified Code(s): G43.A1 - Cyclical vomiting, intractable (4) Ascites Qualifiers: Qualified Code(s): R18.0 - Malignant ascites (6) 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
[2018-05-28] MEDS ORDERED: Metoclopramide 10 MG/2 ML VIAL IVP SCH ×2 (12:25→16:30)
--- NOTE | 2018-05-28 13:55 | IR Procedure Note ---
Date of procedure: 05/28/18 Consent Obtained: Written consent Timeout: Correct patient and procedure verified, Correct site verified, Time out performed, Skin prep completed Local anesthetic: Lidocaine 1% Indications: Left pleural effusion Procedure Performed: Left thoracentesis Was there an assistant director of residence life present: No Site/Technique: Left chest aspirated. Still was draining Results/Findings: Full dictation with amount to follow. Estimated blood loss (cc): 1 Complications: None; Tolerated procedure well Post Procedure Treatment Plan: Monitoring in pts room Specimen: to lab
--- NOTE | 2018-05-28 14:54 | Event Note ---
Date of Encounter: 05/28/18 Time of Encounter: 14:30 Patient has had frequent visit with many specialties today. Attempted to discuss hospice option, patient fading in and out of conversation, spoke mostly with patient's daughter. Patient educated on hospice criteria, insurance coverage for hospice, appropriate time to consult hospice, and availability of DME/nurses with home hospice care. Educational pamphlets given to patient's daughter to review. Patient had thoracentesis performed today, and now appears tired. Made multiple attempts to return to complete full Palliative consult; however, with may specialties visiting patient today, offered to follow up at a later time-daughter agreed.
[2018-05-28 15:31] LABS: LDH,Pleural Fluid 129 Units/L (No Ref Range); Total Protein,Pleural Fluid < 3.0 g/dL (No Ref Range)
[2018-05-28] MEDS ORDERED: *HR* LORazepam Oral Conc 2 MG/ML SL PRN (16:50)
[2018-05-28 17:13] VITALS: BP 58/45
[2018-05-28 18:02] LABS: Appearance of Pleural Fl Cloudy (Clear)
--- NOTE | 2018-05-28 18:10 | Death Note ---
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 Most likely related to ileus related to recent surgery. She had acute kidney injury on presentation and did not respond to aggressive fluid management. Patient was also having significant ascites and anasarca. She expressed wishes to treat her pain and after confirming with her family, patient's CODE STATUS was changed to DNR comfort care and patient was placed on pain medications and Ativan to help with her comfort with the goal of transitioning to hospice. However soon after changing her CODE STATUS and placing comfort care orders, patient peacefully with family at bedside and was pronounced at 6 PM. Time of 1752 hrs. - Additional Data Confirmation of as documented by pronouncing clinician: no pulse, no respirations, no heart sounds, pupils fixed and dilated Family: at bedside Attending physician: Jaxson Drake MD Was code activated?: No Autopsy requested?: No garment examiner notified?: No Organ bank notified?: No Advance directives: Yes Hospice patient?: No Discharge Sum: Diag - PCOD Probable Cause of : Cardiorespiratory arrest - Contributing Factors (1) KAM (acute kidney injury) Acute Kidney Injury (2) Nausea and vomiting Adynamic Ileus (3) Severe protein-calorie malnutrition Severe protein Calorie malnutrition (6) Breast cancer metastasized to large intestine Metastatic Breast Cancer Discharge Sum: Prov - Provider Primary care physician: Maryan Chapin CNP Admitting clinician: Jaxson Drake Attending physician on admission: Jaxson Drake Consults: 05/27/18 16:48 Consult to Surgery [CONS] Routine Consulting Provider: Surgery Padmini Surgical Reason for Consult: Persistent nausea/ Recent surgery for SBO/ colon mets by Dr. Connelly Time Notified: 16:48 Call Completed: Yes 05/27/18 18:20 Consult to Nutrition [CONS] Routine Comment: Consulting Provider: NUTRITION Reason for Dietary Consult: PO Supplementation Consult to Home Service Consultant [CONS] Routine Reason for SW Consult: Padmini 05/28/18 07:23 Consult to Nephrology [CONS] Routine Consulting Provider: Kidney Padmini/NIKITA/SWATI/TONJA Reason for Consult: KAM Call Completed: Yes 05/28/18 09:46 Consult to Palliative Care [CONS] Routine Comment: Consulting Provider: Palliative [place] Reason for Consult: Metastatic breast cancer patient with failure to thrive, persistent pain. Considering hospice. Time Notified: 09:48 Call Completed: Yes 05/28/18 10:15 Consult to Interventional Radiology [CONS] Routine Consulting Provider: Radiology Interventional Cols Reason for Consult: Large left pleural effusion per CT for severe thoracentesis Call Completed: No Pronouncing clinician: Jaxson Drake
== END 2018-05-28 17:52 | disposition expired | DRG 393 ==
LOC: EMEROOARM 12:08 → SUATTDRO 16:30 → 2ANU 16:30
PROVIDERS: ADMIT Internal Medicine; ATTEND Internal Medicine